=== PATIENT | female | born 2000 | race Caucasian/White ===

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

== ENCOUNTER 2021-01-30 10:11 | Emergency (ER) | payer OTHER, MEDICAID, SELFPAY ==
[2021-01-30 10:14] VITALS: BP 127/67; PULSE 84; RESP 14; TEMP 36.9; O2SAT 100; BMI 22.3
--- NOTE | 2021-01-30 10:17 | DI.US.S_ITS ---
PROCEDURE: US PELVIC COMPLETE INDICATIONS: PELVIC PAIN AND HEAVY BLEEDING TECHNIQUE: Real-time scanning was performed of the pelvic organs, with image documentation. Additional endovaginal scanning was necessary due to incomplete visualization of the adnexal and endometrial structures by transabdominal scanning. COMPARISON: [facility], CT, CT ABDOMEN PELVIS W CON, 10/05/2020, 19:57. [facility], US, US PELVIC COMPLETE, 11/17/2018, 8:21. FINDINGS: Uterus: Uterus is normal in size at 6.9 x 5.2 x 3.2 cm. The endometrium measures 7 mm in combined thickness. A small amount of nonvascular echogenic material seen within the cervical canal that may represent blood products. Ovaries: The right ovary measures 4.2 x 3.7 x 2.7 cm. The left ovary measures 3.1 x 3.0 x 1.6 cm. A right ovarian follicle measures 2.7 x 2.6 x 1.9 cm. Arterial and venous Doppler foot visualized to both ovaries. Other: No pathologic free abdominal or pelvic fluid. A nonspecific 8 mm vascular structure is seen in the right adnexal, most likely a prominent vein. IMPRESSION: Endometrium is within normal limits in size. No discrete uterine fibroid is seen. A small amount of echogenic material in the cervix may represent blood products. Dictated by: Saad Lucia M.D. on 01/30/2021 at 11:09 Approved by: Saad Lucia M.D. on 01/30/2021 at 11:18
[2021-01-30 10:37] LABS: Add Manual Diff / Slide Review NO; Basophils Absolute Auto 0 /uL (0-100); Basophils Percent Auto 0.4 % (0-2); Eosinophils Absolute Auto 100 /uL (0-450); Eosinophils Percent Auto 1.6 % (2-4); Hematocrit 40.7 % (36-46); Hemoglobin 13.5 g/dL (12.0-16.0); Lymphocytes Absolute Auto 2000 /uL (1100-4500); Lymphocytes Percent Auto 36.1 % (25-40); Mean Corpuscular HGB Conc 33.1 % (30-36); Mean Corpuscular Hemoglobin 28.3 PG (26-34); Mean Corpuscular Volume 85.5 fL (80-100); Monocytes Absolute Auto 500 /uL (0-900); Neutrophils Absolute Auto 2800 /uL (1500-7000); Neutrophils Percent Auto 51.9 % (50-75); Platelet Count 313 X10^3/uL (150-400); Red Blood Cell Count 4.76 X10^6/uL (4.0-5.2); Red Cell Distribution Width 12.7 % (11.6-14.8); White Blood Cell Count 5.5 X10^3/uL (4.5-11.0)
--- NOTE | 2021-01-30 11:04 | ED_ITS ---
HPI - Female Genitourinary General Chief complaint: Vaginal Bleeding Stated complaint: Severe Bleeding , Filling Maxi pad in an hour Time Seen by Provider: 01/30/21 10:12 Source: patient Mode of arrival: Ambulatory Limitations: no limitations History of Present Illness HPI Narrative: 20-year-old female daily smoker with history of abdominal pain and dysmenorrhea presents with a chief complaint of heavy vaginal bleeding and lower pelvic pain for the past 2 days. She states she is filling a pad per hour with the passage of clots the size of cotton balls. She just had of. Which lasted about 2 weeks, stop for 2 days and then started again. She is not dizzy nor weak or lightheaded. She denies any chest pain or shortness of breath. She takes no blood thinners. She denies any chance of . She denies dysuria, frequency or urgency. She denies any discharge MD Complaint: vaginal bleeding and pelvic pain Onset (ago): day(s) Location: suprapubic Female Urogenital Radiation: LLQ and LRQ Severity: moderate Quality: Aching and Cramping Duration: constant Relieving factors: none Exacerbating factors: movement Vaginal discharge: blood, dark blood and blood clots Patient : No Associated symptoms: denies other symptoms Related Data Home Medications Medication Instructions Recorded Confirmed albuterol sulfate [Ventolin HFA] 0 puff INH Q4HP PRN 11/04/20 11/27/20 Previous Rx's Medication Instructions Recorded mirtazapine 15 mg tablet 15 mg PO BEDTIME #30 tab 09/30/20 quetiapine 200 mg tablet,extended 200 mg PO BEDTIME #30 tab 09/30/20 release 24 hr sertraline 100 mg tablet 200 mg PO DAILY 30 Days #60 tab 09/30/20 mesalamine 500 mg 1,000 mg PO TID #90 cap 11/27/20 capsule,controlled release fluconazole 150 mg tablet 150 mg PO .COMPLEX #2 tab 12/03/20 nystatin-triamcinolone 100,000 1 applic TOPICAL BID 21 Days #30 g 12/03/20 unit/gram-0.1 % topical ointment ciprofloxacin HCl 500 mg PO BID 5 Days #10 tab 01/30/21 Allergies Allergy/AdvReac Type Severity Reaction Status Date / Time adhesive Allergy Intermediate burn type Verified 01/30/21 10:17 wound from where adhesive was ciprofloxacin [CIPROFLOXACIN] Allergy Intermediate Verified 01/30/21 10:17 cefuroxime [CEFUROXIME] Allergy Mild LAB TOLD Verified 01/30/21 10:17 HER SHE WAS ALLERGIC cephalexin [CEPHALEXIN] Allergy Mild LAB TOLD Verified 01/30/21 10:17 HER SHE WAS ALLERGIC Penicillins [PENICILLINS] Allergy Mild LAB TOLD Verified 01/30/21 10:17 HER SHE WAS ALLERGIC ranitidine [From ZANTAC] Allergy Unknown Verified 01/30/21 10:17 Sulfa (Sulfonamide Allergy Unknown FAMILY HX Verified 01/30/21 10:17 Antibiotics) OF SULFA [SULFA (SULFONAMIDE ALLERGY ANTIBIOTICS)] latex AdvReac Intermediate Rash, Verified 01/30/21 10:17 pain, hives Review of Systems Constitutional Constitutional: Denies chills, Denies fatigue, Denies fever(s), Denies frequent falls, Denies lethargy and Denies weakness Eyes Eyes: Denies change in vision, Denies eye discharge, Denies irritation and Denies loss of vision ENT Ears, Nose, Mouth, and Throat: Denies change in voice, Denies dizziness, Denies neck pain, Denies sore throat and Denies throat swelling Cardiovascular Cardiovascular: Denies chest pain, Denies irregular heart rhythm, Denies lightheadedness, Denies palpitations, Denies dyspnea, Denies dyspnea on exertion and Denies orthopnea Respiratory Respiratory: Denies cough, Denies dyspnea, Denies dyspnea on exertion and Denies wheezing Gastrointestinal Gastrointestinal: Denies abdominal pain, Denies change in bowel habits, Denies diarrhea, Denies nausea and Denies vomiting Genitourinary Genitourinary: Reports menorrhagia Musculoskeletal Musculoskeletal: Denies neck pain and Denies numbness Integumentary/Breasts Skin/Breast: Denies pruritus, Denies erythema, Denies rash and Denies wounds Neurologic Neurologic: Denies behavioral changes, Denies confusion, Denies dizziness, Denies frequent falls, Denies loss of vision, Denies numbness and Denies weakness Psychiatric Psychiatric: Denies anxiety, Denies behavioral changes, Denies confusion, Denies depression, Denies homicidal ideation and Denies suicidal ideation Endocrine Endocrine: Denies fatigue, Denies flushing and Denies palpitations Hematologic/Lymphatic Hematologic/Lymphatic: Denies easy bruising Allergic/Immunologic Allergic/Immunologic: Denies urticaria, Denies throat swelling and Denies wh eezing Patient History Medical History Anemia Anxiety and depression Bronchitis C. difficile colitis Hemoptysis History of seizure Influenza Major depressive disorder, recurrent Monochorionic diamniotic twin gestation Recurrent abdominal pain Schizophrenia Twin gestation in second trimester Surgical History H/O colonoscopy H/O endoscopy History of delivery Status post appendectomy (10/2012) Family History Mother Nephrolithiasis Medullary sponge kidney Benign breast cyst in female Father Nephrolithiasis Grandfather Heart disease Diabetes mellitus Stroke Grandmother Heart disease Diabetes mellitus Stroke Family/Other Cancer alcohol intake frequency: holidays/special occasions only Substance Use Type: does not use Exam Narrative Exam Narrative: GENERAL: [20] year old patient appears stated age. Well- nourished, well-developed patient, in mild distress. HEAD: Atraumatic. Normocephalic. EYES: Pupils equal round and reactive. Extraocular motions intact. No scleral icterus. No injection or drainage. ENT: Nose without bleeding, purulent drainage. Throat without erythema, tonsillar hypertrophy or exudate. Airway patent. NECK: Trachea midline. Non tender CARDIOVASCULAR: Regular rate and rhythm without murmurs, gallops, or rubs. RESPIRATORY: Clear to auscultation. Breath sounds equal bilaterally. No wheezes, rales, or rhonchi. GASTROINTESTINAL: Abdomen soft, non-tender, nondistended. PELVIC: No active bleeding. EXTREMITIES: No edema or joint tenderness. BACK: Nontender without deformity or crepitance. No flank tenderness. NEURO: AOx3. SKIN: No rash or erythema of visible areas Initial Vital Signs Initial Vital Signs: Vital Signs Temperature 98.4 F 01/30/21 10:14 Pulse Rate 84 01/30/21 10:14 Respiratory Rate 14 01/30/21 10:14 Blood Pressure 127/67 01/30/21 10:14 Pulse Oximetry 100 01/30/21 10:14 Course Orders Ordered: ED Orders 01/30/21 10:17 US pelvic complete Stat 01/30/21 10:25 Basic Metabolic Panel Stat Complete Blood Count AUTO DIFF Stat Type and Screen Stat Vital Signs Vital signs: Vital Signs - 8 hr 01/30/21 11:33 Pulse Rate 62 Respiratory Rate 12 Blood Pressure 110/68 Pulse Oximetry 100 MDM - Female Genitourinary Lab Data Result diagrams: 01/30/21 10:25 01/30/21 10:25 Labs: Lab Results 01/30/21 01/30/21 01/30/21 Range/Units 10:25 10:25 10:25 WBC 5.5 (4.5-11.0) X10^3/uL RBC 4.76 (4.0-5.2) X10^6/uL Hgb 13.5 (12.0-16.0) g/dL Hct 40.7 (36-46) % MCV 85.5 (80-100) fL MCH 28.3 (26-34) PG MCHC 33.1 (30-36) % RDW 12.7 (11.6-14.8) % Plt Count 313 (150-400) X10^3/uL Neut % (Auto) 51.9 (50-75) % Lymph % (Auto) 36.1 (25-40) % [place] % (Auto) 10.0 (3-14) % Eos % (Auto) 1.6 L (2-4) % Baso % (Auto) 0.4 (0-2) % Neut # (Auto) 2800 (6542-3363) /uL Lymph # (Auto) 2000 (8672-2806) /uL [place] # (Auto) 500 (0-900) /uL Eos # (Auto) 100 (0-450) /uL Baso # (Auto) 0 (0-100) /uL Sodium 137 (137-145) mmol/L Potassium 3.9 (3.4-5.1) mmol/L Chloride 104 (98-107) mmol/L Carbon Dioxide 24 (22-32) mmol/L BUN 4 L (7-17) mg/dL Creatinine 0.51 L (0.52-1.04) mg/dL Estimated GFR > 60.0 (>60) mL/min BUN/Creatinine Ratio 7.8 (6-22) Glucose 98 (70-100) mg/dL Calcium 9.8 (8.4-10.2) mg/dL Blood Type A Positive Antibody Screen Negative Point of Care Testing Test Results Negative Urine Dip Bedside Urine Glucose 100 mg/dl Bedside Urine Bilirubin ++ 2 Bedside Urine Ketone + 15 Urine Specific [place] 1.025 Bedside Urine Occult Blood +++ Bedside Urine pH 6.5 Bedside Urine Protein +++ 300 Bedside Urine Urobilinogen 2+ 4mg Bedside Urine Nitrite + Positive Bedside Urine Leukocytes +++ 500 Esterase Imaging Data US - SPACE CONTROLLER: Radiologist's Impression: [address] [id number] ReportSigned Patient: Nai Frias LMR#: [id number]: 2000Acct:[id number]/Sex: 20 / FDate of Service: 01/30/21Loc: EDAccession Number: [id number] Procedure: US pelvic complete Ordering Provider: Timo Sykes D.O. PROCEDURE: US PELVIC COMPLETE INDICATIONS: PELVIC PAIN AND HEAVY BLEEDING TECHNIQUE: Real-time scanning was performed of the pelvic organs, with image documentation. Additional endovaginal scanning was necessary due to incomplete visualization of the adnexal and endometrial structures by transabdominal scanning. COMPARISON: [facility], CT, CT ABDOMEN PELVIS W CON, 10/05/2020, 19:57. [facility], US, US PELVIC COMPLETE, 11/17/2018, 8:21. FINDINGS: Uterus: Uterus is normal in size at 6.9 x 5.2 x 3.2 cm. The endometrium measures 7 mm in combined thickness. A small amount of nonvascular echogenic material seen within the cervical canal that may represent blood products. Ovaries: The right ovary measures 4.2 x 3.7 x 2.7 cm. The left ovary measures 3.1 x 3.0 x 1.6 cm. A right ovarian follicle measures 2.7 x 2.6 x 1.9 cm. Arterial and venous Doppler foot visualized to both ovaries. Other: No pathologic free abdominal or pelvic fluid. A nonspecific 8 mm vascular structure is seen in the right adnexal, most likely a prominent vein. IMPRESSION: Endometrium is within normal limits in size. No discrete uterine fibroid is seen. A small amount of echogenic material in the cervix may represent blood products. Dictated by: Saad Lucia M.D. on 01/30/2021 at 11:09 Approved by: Saad Lucia M.D. on 01/30/2021 at 11:18 MDM Narrative Medical decision making narrative: Patient has very minimal bleeding (if any) currently. Her pain is at a minimum. Labs and imaging are very reassuring. No indication at this time for more advanced imaging or emergent assistant professor of art consultation. We will treat her UTI and encourage close follow up. Return precautions given and questions answered to her apparent satisfaction. Discharge Plan Departure Patient Disposition: Home Clinical Impression: Dysfunctional uterine bleeding UTI (urinary tract infection) Qualifiers: Urinary tract infection type: acute cystitis Hematuria presence: without hematuria Qualified Code(s): N30.00 - Acute cystitis without hematuria Instructions: DI for Urinary Tract Infection (UTI), DI for Vaginal Bleeding Activity Restrictions/Additional Instructions: *You have been diagnosed with [vaginal bleeding and pelvic pain] *What to do: *Take medications as directed: Prescription sent to [facility] for an antibiotic *Follow up with your primary care provider in 2-3 days, call for an appointment. Let them know you were seen in the Emergency Department and that we ask that you be seen in follow up *Return to ER if you should have any new, worsening or concerning symptoms, such as [increasing pain, bleeding through greater than a pad per hour, fever, shaking chills] Prescriptions: New ciprofloxacin HCl 500 mg tablet 500 mg PO BID 5 Days Qty: 10 RF: 0 No Action quetiapine 200 mg tablet extended release 24 hr 200 mg PO BEDTIME Qty: 30 RF: 2 mirtazapine 15 mg tablet 15 mg PO BEDTIME Qty: 30 RF: 2 sertraline 100 mg tablet 200 mg PO DAILY 30 Days Qty: 60 RF: 2 fluconazole 150 mg tablet 150 mg PO .COMPLEX Qty: 2 RF: 0 nystatin-triamcinolone 100,000-0.1 unit/gram-% ointment 1 applic topical BID 21 Days Qty: 30 RF: 1 Pentasa 500 mg capsule, extended release 1,000 mg PO TID Qty: 90 RF: 0 albuterol sulfate [Ventolin HFA] 90 MCG/PUFF HFA aerosol inhaler 0 puff INH Q4HP PRN (Reason: Bronchospasm) RF: 0 Referrals: Erlinda Holland DO [Primary Care Provider] -
--- NOTE | 2021-01-30 11:21 | PC.NURSE ---
standby for pelvic exam. Patient tolerated well.
[2021-01-30 11:33] VITALS: BP 110/68; PULSE 62; RESP 12; O2SAT 100
[2021-01-30 11:40] LABS: BUN Creatinine Ratio 7.8 (6-22); Blood Urea Nitrogen 4 mg/dL (7-17); Calcium 9.8 mg/dL (8.4-10.2); Carbon Dioxide 24 mmol/L (22-32); Chloride 104 mmol/L (98-107); Estimated Glomerular Filt Rate > 60.0 mL/min (>60); Glucose 98 mg/dL (70-100); HEMOLYSIS < 15 (0-50); Potassium 3.9 mmol/L (3.4-5.1); Sodium 137 mmol/L (137-145)
== END 2021-01-30 11:34 | disposition home or self-care (01) ==
PROVIDERS: Emergency Provider Emergency Medicine; PCP Family Medicine
DX: N30.00 Acute cystitis without hematuria (principal); N93.8 Other specified abnormal uterine and vaginal bleeding; R10.2 Pelvic and perineal pain
CPT/HCPCS: 36415; 76830; 76856; 80048; 81003; 81025; 85025; 86850; 86900; 86901; 99283; 99284

== ENCOUNTER → 2021-03-04 16:18 | Outpatient (CLI) | payer OTHER, MEDICAID, SELFPAY ==
[2021-03-04] MEDS: COVID-19 VACC #1, MRNA(MOD) 100 MCG/0.5 ML VIAL IM (16:25)
== END ==
PROVIDERS: PCP Family Medicine; Visit Provider Internal Medicine
DX: Z23 Encounter for immunization (principal)
CPT/HCPCS: 0011A; 91301

== ENCOUNTER → 2021-04-02 15:24 | Outpatient (CLI) | payer OTHER, MEDICAID, SELFPAY ==
[2021-04-02] MEDS: COVID-19 VACC #2, MRNA(MOD) 100 MCG/0.5 ML VIAL IM (15:27)
== END ==
PROVIDERS: PCP Family Medicine; Visit Provider Internal Medicine
DX: Z23 Encounter for immunization (principal)
CPT/HCPCS: 0012A; 91301

== ENCOUNTER → 2021-10-03 13:04 | Outpatient (CLI) | payer OTHER, MEDICAID, SELFPAY ==
[2021-10-03 14:08] LABS: COVID19 -Nasal RAPID Negative (Negative)
== END ==
PROVIDERS: PCP Family Medicine; Visit Provider Physician Assistant
DX: Z20.822 Contact with and (suspected) exposure to COVID-19 (principal)
CPT/HCPCS: 87635

== ENCOUNTER 2021-10-19 09:10 | Emergency (ER) | payer OTHER, MEDICAID, SELFPAY ==
[2021-10-19 09:16] VITALS: TEMP 37.1; BMI 21.9
[2021-10-19 09:37] LABS: Add Manual Diff / Slide Review NO; Basophils Absolute Auto 0 /uL (0-100); Basophils Percent Auto 0.4 % (0-2); Eosinophils Absolute Auto 100 /uL (0-450); Eosinophils Percent Auto 1.5 % (2-4); Hematocrit 41.5 % (36-46); Hemoglobin 13.9 g/dL (12.0-16.0); Lymphocytes Absolute Auto 2000 /uL (1100-4500); Lymphocytes Percent Auto 24.1 % (25-40); Mean Corpuscular HGB Conc 33.5 % (30-36); Mean Corpuscular Hemoglobin 28.8 PG (26-34); Monocytes Absolute Auto 400 /uL (0-900); Monocytes Percent Auto 5.1 % (3-14); Neutrophils Absolute Auto 5600 /uL (1500-7000); Neutrophils Percent Auto 68.9 % (50-75); Platelet Count 363 X10^3/uL (150-400); Red Blood Cell Count 4.82 X10^6/uL (4.0-5.2); Red Cell Distribution Width 12.5 % (11.6-14.8); White Blood Cell Count 8.1 X10^3/uL (4.5-11.0)
[2021-10-19 09:58] LABS: Alanine Aminotransferase 15 IU/L (<35); Albumin Globulin Ratio 1.6 (1.0-2.8); Alkaline Phosphatase 73 U/L (38-126); Aspartate Aminotransferase 25 IU/L (14-36); BUN Creatinine Ratio 11.1 (6-22); Bilirubin Total 0.6 mg/dL (0.2-1.3); Blood Urea Nitrogen 6 mg/dL (7-17); Calcium 9.9 mg/dL (8.4-10.2); Carbon Dioxide 26 mmol/L (22-32); Chloride 102 mmol/L (98-107); Estimated Glomerular Filt Rate > 60.0 mL/min (>60); Globulin 3.2 g/dL (1.7-4.1); Glucose 100 mg/dL (70-100); HEMOLYSIS < 15 (0-50); Lipase 59 U/L (23-300); Potassium 3.9 mmol/L (3.4-5.1); Sodium 140 mmol/L (137-145); Total Protein 8.2 g/dL (6.3-8.2)
--- NOTE | 2021-10-19 10:37 | ED.ABDPAIN ---
HPI - Abdominal Pain General Chief Complaint: Abdominal Pain Stated Complaint: chest and right side hurts, throwing up bile Time Seen by Provider: 10/19/21 10:31 Source: patient Mode of arrival: Ambulatory Limitations: no limitations History of Present Illness HPI narrative: This is a 20-year-old female comes emergency department with complaint of right sided abdominal pain in the front as well as back. Patient states it started initially in the front, it has accepted more to the midline epigastric region and around towards her back. She states she has not had fever but has had some chills on and off for the past week. She has had nausea and vomiting. She has been able to tolerate several bottles of water this morning but still feels nauseated. She has not had any diarrhea constipation. She has noted a sense of incomplete emptying and urgency but no dysuria or frequency in the past day. She denies any vaginal bleeding or discharge. Patient has had a prior for delivery of twins and an appendectomy. She is currently transitioning on her mental health medications as her priors were not working as well. She has been working with her psychiatrist for this. She does not have any additional concerns or mental health perspective today. She did have her COVID shot about a week ago and states she felt ill for 1 day but then improved. She states she is allergic to penicillins and anything related to this such as cephalexin or amoxicillin. Related Data Home Medications Medication Instructions Recorded Confirmed albuterol sulfate 90 mcg/actuation 0 puff INH Q4HP PRN 11/04/20 10/03/21 aerosol inhaler (Ventolin HFA) Previous Rx's Medication Instructions Recorded mesalamine 500 mg 1,000 mg PO TID #90 cap 11/27/20 capsule,controlled release (Pentasa) fluconazole 150 mg tablet 150 mg PO .COMPLEX #2 tab 12/03/20 nystatin-triamcinolone 100,000 1 applic TOPICAL BID 21 Days #30 g 12/03/20 unit/gram-0.1 % topical ointment mirtazapine 15 mg tablet 15 mg PO BEDTIME #30 tab 08/08/21 quetiapine 200 mg tablet,extended 200 mg PO BEDTIME #30 tab 08/08/21 release 24 hr sertraline 100 mg tablet 200 mg PO DAILY 30 Days #60 tab 08/08/21 nitrofurantoin 100 mg PO BID #20 cap 10/19/21 monohydrate/macrocrystals 100 mg capsule (Macrobid) ondansetron HCl 4 mg tablet 4 mg PO Q6H PRN #5 tab 10/19/21 (Zofran) Allergies Allergy/AdvReac Type Severity Reaction Status Date / Time adhesive Allergy Intermediate burn type Verified 10/03/21 13:50 wound from where adhesive was ciprofloxacin [CIPROFLOXACIN] Allergy Intermediate Verified 10/03/21 13:50 cefuroxime [CEFUROXIME] Allergy Mild LAB TOLD Verified 10/03/21 13:50 HER SHE WAS ALLERGIC cephalexin [CEPHALEXIN] Allergy Mild LAB TOLD Verified 10/03/21 13:50 HER SHE WAS ALLERGIC Penicillins [PENICILLINS] Allergy Mild LAB TOLD Verified 10/03/21 13:50 HER SHE WAS ALLERGIC ranitidine [From ZANTAC] Allergy Unknown Verified 10/03/21 13:50 Sulfa (Sulfonamide Allergy Unknown FAMILY HX Verified 10/03/21 13:50 Antibiotics) OF SULFA [SULFA (SULFONAMIDE ALLERGY ANTIBIOTICS)] latex AdvReac Intermediate Rash, Verified 10/03/21 13:50 pain, hives Review of Systems Review of Systems ROS Unobtainable: All systems reviewed & are unremarkable except as noted in HPI and below Patient History Medical History Anemia Anxiety and depression Bronchitis C. difficile colitis Hemoptysis History of seizure Influenza Major depressive disorder, recurrent Monochorionic diamniotic twin gestation Nasal bone fracture (~03/2021) Recurrent abdominal pain Schizophrenia Twin gestation in second trimester Surgical History H/O colonoscopy H/O endoscopy History of delivery Status post appendectomy (10/2012) Family History Mother Nephrolithiasis Medullary sponge kidney Benign breast cyst in female Father Nephrolithiasis Grandfather Heart disease Diabetes mellitus Stroke Grandmother Heart disease Diabetes mellitus Stroke Family/Other Cancer Social History household members: spouse Smoking Status: Current every day smoker alcohol intake: current Smoking Status: Current every day smoker alcohol intake frequency: holidays/special occasions only Substance Use Type: does not use Exam Narrative Exam Narrative: GENERAL: Alert and oriented x three, well-nourished female in mild distress HEENT: Head normocephalic, atraumatic, EOMI, pupils reactive, face symmetric, moist mucous membranes NECK: Supple, full range of motion CARDIOVASCULAR: Regular rate and rhythm without murmurs, rubs or gallops. RESPIRATORY: Breath sounds equal bilaterally, no wheezes rales or rhonchi. ABDOMEN: Soft, positive right upper quadrant tenderness.Normoactive bowel sounds all 4 quadrants. No guarding or rebound, rigidity, no mass. : No CVA tenderness EXTREMITIES: Normal range of motion, no clubbing or edema. Neurovascularly intact NEUROLOGICAL: Cranial nerves II through XII grossly intact. Moving all extremities SKIN: Warm, dry, no petechiae, no rashes or lesions. Initial Vital Signs Initial Vital Signs: Vital Signs Temperature 98.8 F 10/19/21 09:16 Course Orders Ordered: ED Orders 10/19/21 10:30 Urine Culture Stat Urine Microscopic Stat 10/19/21 10:51 US abdomen complete Stat Discontinued Medications Sodium Chloride (Normal Saline 0.9%) 1,000 mls @ 1,000 mls/hr IV BOLUS ONE Stop: 10/19/21 11:50 Last Admin: 10/19/21 11:38 Dose: 1,000 mls/hr Documented by: MIRNA Ketorolac Tromethamine (Ketorolac 30 Mg/Ml Vial) 30 mg IV NOW ONE Stop: 10/19/21 10:52 Last Admin: 10/19/21 11:38 Dose: 30 mg Documented by: MIRNA Nitrofurantoin Macrocrystals (Nitrofurantoin Er 100 Mg Capsule) 100 mg PO NOW ONE Stop: 10/19/21 11:55 Last Admin: 10/19/21 12:06 Dose: 100 mg Documented by: RALPH Ondansetron HCl (Ondansetron 4 Mg/2 Ml Inj) 4 mg IV NOW ONE Stop: 10/19/21 10:52 Last Admin: 10/19/21 11:38 Dose: 4 mg Documented by: MIRNA Reevaluation(s) Reevaluation #1: Patient feels much better. Her nausea is resolved. She was able to tolerate orals including her antibiotic here in the department. Ultrasound and labs were reviewed she appears to have a UTI and may be having little bit of a kidney infection but otherwise appears well with no other source of infection found. Time: 12:19 Vital Signs Vital signs: Vital Signs - 8 hr 10/19/21 12:21 10/19/21 12:24 Pulse Rate 70 65 Respiratory Rate 16 18 Blood Pressure 106/62 106/92 H Pulse Oximetry 99 100 MDM - Abdominal Pain Lab Data Result diagrams: 10/19/21 09:25 10/19/21 09:25 Labs: Lab Results 10/19/21 10/19/21 10/19/21 Range/Units 09:25 09:25 10:30 WBC 8.1 (4.5-11.0) X10^3/uL RBC 4.82 (4.0-5.2) X10^6/uL Hgb 13.9 (12.0-16.0) g/dL Hct 41.5 (36-46) % MCV 86.0 (80-100) fL MCH 28.8 (26-34) PG MCHC 33.5 (30-36) % RDW 12.5 (11.6-14.8) % Plt Count 363 (150-400) X10^3/uL Neut % (Auto) 68.9 (50-75) % Lymph % (Auto) 24.1 L (25-40) % [place] % (Auto) 5.1 (3-14) % Eos % (Auto) 1.5 L (2-4) % Baso % (Auto) 0.4 (0-2) % Neut # (Auto) 5600 (4515-0527) /uL Lymph # (Auto) 2000 (7292-8050) /uL [place] # (Auto) 400 (0-900) /uL Eos # (Auto) 100 (0-450) /uL Baso # (Auto) 0 (0-100) /uL Sodium 140 (137-145) mmol/L Potassium 3.9 (3.4-5.1) mmol/L Chloride 102 (98-107) mmol/L Carbon Dioxide 26 (22-32) mmol/L BUN 6 L (7-17) mg/dL Creatinine 0.54 (0.52-1.04) mg/dL Estimated GFR > 60.0 (>60) mL/min BUN/Creatinine Ratio 11.1 (6-22) Glucose 100 (70-100) mg/dL Calcium 9.9 (8.4-10.2) mg/dL Total Bilirubin 0.6 (0.2-1.3) mg/dL AST 25 (14-36) IU/L ALT 15 (<35) IU/L Alkaline Phosphatase 73 (38-126) U/L Total Protein 8.2 (6.3-8.2) g/dL Albumin 5.0 (3.5-5.0) g/dL Globulin 3.2 (1.7-4.1) g/dL Albumin/Globulin Ratio 1.6 (1.0-2.8) Lipase 59 (23-300) U/L Urine RBC None seen (0-5/HPF) Urine WBC 5-10/hpf H (0-5/HPF) Ur Squamous Epith Cells 1-5 /hpf (0-5/HPF) Urine Bacteria Many (>30) H (None) Ur Culture Indicated? Specimen cultured Point of care testing: Point of Care Testing Test Results Negative Urine Dip Bedside Urine Glucose Negative Bedside Urine Bilirubin - Negative Bedside Urine Ketone - Negative Urine Specific [place] 1.015 Bedside Urine Occult Blood - Negative Bedside Urine pH 8.0 Bedside Urine Protein +/- 15 Bedside Urine Urobilinogen 0.2 Bedside Urine Nitrite + Positive Bedside Urine Leukocytes +/- 15 Esterase Imaging Data US - abdomen: Radiologist's Impression: Launch?[place] [address] Ultrasound Report Signed Patient: Nai Frias MR#: [id number] : 2000 Acct:[id number] Age/Sex: 20 / F Date of Service: 10/19/21 Loc: ED Accession Number: [id number] ?? Procedure: US abdomen complete Ordering Provider: Maricarmen Muñoz D.O. PROCEDURE:? US ABDOMEN COMPLETE ? INDICATIONS:? RUQ/RIGHT FLANK PAIN ? TECHNIQUE:? Real-time scanning was performed of the abdominal and retroperitoneal organs, with image documentation.? ? COMPARISON:[facility], ABDOMEN COMPLETE, 11/27/2015, 16:42. ? FINDINGS:? ? Liver:? Liver is normal in size and homogeneous in echotexture.? ? Gallbladder:? No findings of gallstones or sludge are seen.? The gallbladder wall is not thickened, measuring 3 mm or less.? No specific pericholecystic fluid is seen.? The sonographic Torres sign is negative.? ? Biliary ducts:? Intrahepatic bile ducts are non-dilated.? Extrahepatic bile duct caliber measures 2 mm.? Normal is 6-7 mm or less in diameter, or 10 mm or less post-cholecystectomy.? ? Pancreas:? Visualized portions of the pancreas are sonographically normal.? ? Spleen:? Spleen is normal in size and homogeneous in echotexture.? ? Kidneys:? Kidneys are normal in size and echotexture.? Right kidney measures 10.5 cm long; left kidney measures 10 cm long.? No hydronephrosis or nephrolithiasis.? No solid masses.? ? Aorta:? Visualized aorta is normal in caliber at less than 3 cm.? ? Iliacs:? Proximal common iliac arteries are normal in caliber at less than 2.5 cm.? ? IVC:? Intrahepatic inferior vena cava is patent.? ? Miscellaneous:? No free abdominal fluid.? ? ? IMPRESSION:? The gallbladder demonstrates a normal sonographic appearance. No biliary dilatation is seen. ? Negative for hydronephrosis. ? ? ? Dictated by: Juan Peterson M.D. on 10/19/2021 at 11:05 ? ? Approved by: Juan Peterson M.D. on 10/19/2021 at 11:06?? [facility] Narrative Medical decision making narrative: This is a 20-year-old female who comes in with complaint of nausea and vomiting for past 12-24 hours right-sided abdominal and flank pain. Patient has noted some urinary symptoms as well. Urine is suspicion for infection. She otherwise has fairly normal labs and ultrasound that is not concerning for obstructive stone or gallbladder changes. Patient feels much better after fluids Zofran and Toradol and is tolerating orals. Discharge Plan Departure Patient Disposition: Home Clinical Impression: UTI (urinary tract infection) Instructions: DI for Urinary Tract Infection (UTI) Activity Restrictions/Additional Instructions: Follow-up in the next week for recheck if your symptoms have not resolved. Take antibiotics until completely gone. You may take Zofran 1 tablet every 6 hours as needed for nausea. [facility] [place]. Please return for fevers, new or worsening abdominal, back or flank pain, persistent vomiting, lightheadedness or passing out or other new or concerning symptoms. Prescriptions: New nitrofurantoin monohyd/m-cryst [Macrobid] 100 mg capsule 100 mg PO BID Qty: 20 0RF Rx Instructions: must administer with a meal/food ondansetron HCl [Zofran] 4 mg tablet 4 mg PO Q6H PRN (Reason: nausea and vomiting) Qty: 5 0RF No Action mirtazapine 15 mg tablet 15 mg PO BEDTIME Qty: 30 2RF quetiapine 200 mg tablet extended release 24 hr 200 mg PO BEDTIME Qty: 30 2RF sertraline 100 mg tablet 200 mg PO DAILY 30 Days Qty: 60 2RF fluconazole 150 mg tablet 150 mg PO .COMPLEX Qty: 2 0RF Rx Instructions: Take 1 tablet by mouth now. Repeat second dose in 5 days. nystatin-triamcinolone 100,000-0.1 unit/gram-% ointment 1 applic topical BID 21 Days Qty: 30 1RF Pentasa 500 mg capsule, extended release 1,000 mg PO TID Qty: 90 0RF albuterol sulfate [Ventolin HFA] 90 MCG/PUFF HFA aerosol inhaler 0 puff INH Q4HP PRN (Reason: Bronchospasm) 0RF Referrals: Erlinda Holland DO [Primary Care Provider] - Stand Alone Forms: Work Release Note
[2021-10-19 10:50] LABS: Bacteria Urine Many (>30); Culture Indicated Urine Specimen Cultured; RBC Urine None Seen (0-5/HPF); Squamous Epithelial Cell Urine 1-5 /HPF (0-5/HPF); WBC Urine 5-10/HPF (0-5/HPF)
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
[2021-10-19] MEDS: ONDANSETRON 4 MG/2 ML INJ IV (11:38)
[2021-10-19] MEDS: KETOROLAC 30 MG/ML VIAL IV (11:38)
[2021-10-19] MEDS: SODIUM CHLORIDE 0.9% 1,000 ML 1000 ML IV (11:38)
[2021-10-19] MEDS: NITROFURANTOIN ER 100 MG CAPSULE PO (12:06)
[2021-10-19 12:21] VITALS: BP 106/62; PULSE 70; RESP 16; O2SAT 99
[2021-10-19 12:24] VITALS: BP 106/92; PULSE 65; RESP 18; O2SAT 100
--- NOTE | 2021-10-30 13:40 | PC.NURSE ---
late entry - per RN IV fluids were DC'd at 1230 at time IV was discontinued
--- NOTE | 2021-10-31 07:26 | PC.NURSE ---
late entry, normal saline stop time 10/19/21 at 1230 pm.
== END 2021-10-19 12:33 | disposition home or self-care (01) ==
PROVIDERS: Emergency Provider Emergency Medicine; PCP Family Medicine
DX: N39.0 Urinary tract infection, site not specified (principal); R11.2 Nausea with vomiting, unspecified
CPT/HCPCS: 76700; 80053; 81003; 81015; 81025; 83690; 85025; 87077; 87086; 87186; 96361; 96374; 96375; 99284; J1885; J2405

== ENCOUNTER 2021-10-27 17:02 | Emergency (ER) | payer OTHER, MEDICAID, SELFPAY ==
[2021-10-27 17:15] VITALS: BP 131/82; PULSE 107; RESP 18; TEMP 37; O2SAT 97; BMI 18.8
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
--- NOTE | 2021-10-27 20:10 | PC.NURSE ---
Received call from pt's mother who was very upset that pt had not been seen yet. Informed that pt was brought directly back, that CT had been completed and that LABEL REMOVER had spent over an hour with pt. She continued to be upset. I reviewed triage / acuity with her. She hung up on me.
[2021-10-27] MEDS: SODIUM CHLORIDE 0.9% 1,000 ML 1000 ML IV (20:58)
[2021-10-27] MEDS: CYCLOBENZAPRINE 10 MG PREPACK 1 BOTTLE MISC (20:58)
[2021-10-27] MEDS: KETOROLAC 30 MG/ML VIAL 15 MG IV (20:58)
[2021-10-27 21:00] LABS: Add Manual Diff / Slide Review NO; Basophils Absolute Auto 0 /uL (0-100); Basophils Percent Auto 0.3 % (0-2); Eosinophils Absolute Auto 200 /uL (0-450); Eosinophils Percent Auto 2.2 % (2-4); Hematocrit 40.4 % (36-46); Hemoglobin 13.7 g/dL (12.0-16.0); Lymphocytes Absolute Auto 3500 /uL (1100-4500); Lymphocytes Percent Auto 37.5 % (25-40); Mean Corpuscular HGB Conc 33.8 % (30-36); Mean Corpuscular Hemoglobin 28.7 PG (26-34); Mean Corpuscular Volume 84.7 fL (80-100); Monocytes Absolute Auto 900 /uL (0-900); Monocytes Percent Auto 9.2 % (3-14); Neutrophils Absolute Auto 4800 /uL (1500-7000); Neutrophils Percent Auto 50.8 % (50-75); Platelet Count 353 X10^3/uL (150-400); Red Blood Cell Count 4.77 X10^6/uL (4.0-5.2); Red Cell Distribution Width 12.3 % (11.6-14.8); White Blood Cell Count 9.4 X10^3/uL (4.5-11.0)
[2021-10-27 21:17] LABS: Alanine Aminotransferase 17 IU/L (<35); Albumin 5.1 g/dL (3.5-5.0); Albumin Globulin Ratio 1.4 (1.0-2.8); Alkaline Phosphatase 78 U/L (38-126); Aspartate Aminotransferase 36 IU/L (14-36); BUN Creatinine Ratio 16.1 (6-22); Bilirubin Total 0.7 mg/dL (0.2-1.3); Blood Urea Nitrogen 10 mg/dL (7-17); Calcium 10.1 mg/dL (8.4-10.2); Carbon Dioxide 24 mmol/L (22-32); Chloride 105 mmol/L (98-107); Estimated Glomerular Filt Rate > 60.0 mL/min (>60); Globulin 3.6 g/dL (1.7-4.1); Glucose 84 mg/dL (70-100); HEMOLYSIS 16 (0-50); Potassium 3.4 mmol/L (3.4-5.1); Sodium 143 mmol/L (137-145); Total Protein 8.7 g/dL (6.3-8.2)
[2021-10-27 22:18] VITALS: BP 115/73; PULSE 78; RESP 18; O2SAT 100
== END 2021-10-27 22:19 | disposition home or self-care (01) ==
PROVIDERS: Emergency Provider Emergency Medicine; PCP Family Medicine
DX: R55 Syncope and collapse (principal); S00.83XA Contusion of other part of head, initial encounter; M54.2 Cervicalgia; Y04.8XXA Assault by other bodily force, initial encounter
CPT/HCPCS: 36415; 70450; 72125; 80053; 85025; 93005; 93010; 96361; 96374; 99284; J1885

== ENCOUNTER 2021-11-07 10:27 | Emergency (ER) | payer OTHER, MEDICAID, SELFPAY ==
[2021-11-07] VITALS (24 sets, daily range): BP systolic 101–121; BP diastolic 57–82; PULSE 90–127; RESP 17–41; TEMP 36.4; O2SAT 96–100; BMI 18.5
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
--- NOTE | 2021-11-07 10:52 | DI.RAD.S_ITS ---
PROCEDURE: XR CHEST 1V INDICATIONS: SOB TECHNIQUE: One view of the chest was acquired. COMPARISON: [facility], , XR CHEST 1V, 10/04/2020, 17:57. FINDINGS: Surgical changes and devices: None. Lungs and pleura: Lungs are clear. No pleural effusions or pneumothorax. Mediastinum: Mediastinal contours appear normal. Heart size is normal. Bones and chest wall: No suspicious bony lesions. Overlying soft tissues appear unremarkable. IMPRESSION: No acute cardiopulmonary findings Approved by: Nikko Rivera M.D. on 11/07/2021 at 10:31
[2021-11-07 11:01] LABS: Add Manual Diff / Slide Review NO; Basophils Absolute Auto 0 /uL (0-100); Basophils Percent Auto 0.3 % (0-2); Eosinophils Absolute Auto 100 /uL (0-450); Eosinophils Percent Auto 0.7 % (2-4); Hematocrit 40.6 % (36-46); Lymphocytes Absolute Auto 2200 /uL (1100-4500); Lymphocytes Percent Auto 24.5 % (25-40); Mean Corpuscular HGB Conc 34.4 % (30-36); Mean Corpuscular Volume 84.2 fL (80-100); Monocytes Absolute Auto 700 /uL (0-900); Monocytes Percent Auto 7.9 % (3-14); Neutrophils Absolute Auto 6000 /uL (1500-7000); Neutrophils Percent Auto 66.6 % (50-75); Platelet Count 353 X10^3/uL (150-400); Red Blood Cell Count 4.82 X10^6/uL (4.0-5.2); Red Cell Distribution Width 12.1 % (11.6-14.8)
[2021-11-07] MEDS: SODIUM CHLORIDE 0.9% 1,000 ML 1000 ML IV ×2 (11:06→12:53)
[2021-11-07 11:07] LABS: Lactate (Lactic Acid) 1.8 mmol/L (0.7-2.1)
[2021-11-07 11:08] LABS: Alanine Aminotransferase 15 IU/L (<35); Albumin Globulin Ratio 1.6 (1.0-2.8); Alkaline Phosphatase 82 U/L (38-126); Aspartate Aminotransferase 24 IU/L (14-36); BUN Creatinine Ratio 21.7 (6-22); Bilirubin Total 0.4 mg/dL (0.2-1.3); Blood Urea Nitrogen 13 mg/dL (7-17); Carbon Dioxide 25 mmol/L (22-32); Chloride 102 mmol/L (98-107); Creatine Kinase 94 U/L (30-135); Estimated Glomerular Filt Rate > 60.0 mL/min (>60); Globulin 3.2 g/dL (1.7-4.1); Glucose 110 mg/dL (70-100); HEMOLYSIS < 15 (0-50); Magnesium 2.1 mg/dL (1.6-2.3); Potassium 3.9 mmol/L (3.4-5.1); Sodium 139 mmol/L (137-145); Total Protein 8.2 g/dL (6.3-8.2)
[2021-11-07 11:19] LABS: Troponin I < 0.012 ng/mL (0.01-0.034)
[2021-11-07 11:26] LABS: D Dimer < 200 ng/mL (<230)
[2021-11-07 11:45] LABS: COVID19 -Nasal RAPID Negative (Negative)
--- NOTE | 2021-11-07 12:15 | PC.NURSE ---
Pt reports still feeling lightheaded, worse with position, Dr. Sykes notified.
--- NOTE | 2021-11-07 13:05 | DI.CT.S_ITS ---
After the administration of intravenous contrast, 1 mm thick sections acquired from the aortic arch through the [place] of [place]andez. Post-contrast 4.5 mm thick sections then re-acquired from the foramen magnum to the vertex. 3-dimensional [id number]-[id number] (MIP) and/or volume rendering reformats were acquired of the central intracranial vasculature and neck separately. COMPARISON: None. FINDINGS: Image quality: Excellent. BRAIN: CSF spaces: Ventricles are normal in size and shape. Basal cisterns are patent. No extra-axial fluid collections. Brain: No midline shift. No intracranial bleeds or masses. Avila-white matter interface appears intact. Skull and face: Calvarium and facial bones appear intact, without suspicious lesions. Orbits appear normal. Sinuses: Sinuses and mastoids are clear. HEAD CT ANGIOGRAPHY: Anterior circulation: Intracranial internal carotid arteries are normal in size and flow. The flow within the paired anterior cerebral arteries is normal and symmetric. The flow within the middle cerebral arteries is normal and symmetric. The anterior communicating artery is seen. No aneurysms are seen. Posterior circulation: Visualized portions of the vertebral arteries demonstrate normal caliber, and join to form a normal appearing basilar artery. Flow within the posterior cerebral arteries is normal and symmetric. No aneurysms are seen. NECK CT ANGIOGRAPHY: Carotid system: The great vessels demonstrate a conventional anatomy as they arise from the aortic arch. The origins of the common carotid arteries appear patent. The common carotid arteries demonstrate normal caliber and courses. The bifurcation regions are both widely patent. The internal carotid arteries demonstrate normal calibers and courses. Posterior circulation: The origins of the vertebral arteries both appear widely patent. The more superior extracranial portions of both vertebral arteries also demonstrate normal courses and calibers. They join to form a normal appearing basilar artery. Soft tissues: Visualized neck soft tissues demonstrate no suspicious abnormalities. Bones: No suspicious bony lesions. Visualized cervical spine appears normally aligned. IMPRESSION: Unremarkable CT angiogram of the head and neck. No findings of acute vascular injury. Any quantitative measurements of stenosis were performed using NASCET criteria. Dictated by: Robbie Pritchett M.D. on 11/07/2021 at 13:54 Approved by: Robbie Pritchett M.D. on 11/07/2021 at 13:57
--- NOTE | 2021-11-07 14:43 | PC.NURSE ---
Pt assisted to bathroom, sat up slowly and reports dizziness. Wheelchair utilized to the bathroom and pt steadily transferred self.
[2021-11-07] MEDS: ONDANSETRON 4 MG/2 ML INJ IV (14:58)
--- NOTE | 2021-11-07 15:42 | PC.NURSE ---
During standing orthostatics, pt swaying and holding onto bed, increased work of breathing. Pt attempted to walk and after two steps stated I need to go back, I can't see, reports seeing black spots. Assisted back to stretcher and pt reports body recovered but eyes causing her to feel dizzy.
[2021-11-07] MEDS: LACTATED RINGERS 1,000 ML 1000 ML IV (15:50)
--- NOTE | 2021-11-07 16:49 | PC.NURSE ---
Pt called regarding IV, states it is burning. Site intact with no indications of infiltration, blood return with flush. IV removed per request and new site started to continue fluids.
--- NOTE | 2021-11-07 17:56 | PC.NURSE ---
c/o IV right true 'burning'. Nothing infusing. Flushes well. No redness at site or around adhesives. Warm blanket around it for comfort.
--- NOTE | 2021-11-07 18:00 | PC.NURSE ---
Pt appears angry and is not making good eye contact. One word answers at times. Encouraged conversation but pt declines. Will refer to ED ESCALATOR CONSTRUCTOR whom she has seen in the past by phone early next week.
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
== END 2021-11-07 18:18 | disposition home or self-care (01) ==
PROVIDERS: Emergency Provider Emergency Medicine; PCP Family Medicine
DX: F07.81 Postconcussional syndrome (principal); F17.200 Nicotine dependence, unspecified, uncomplicated; Z20.822 Contact with and (suspected) exposure to COVID-19
CPT/HCPCS: 36415; 70496; 70498; 71045; 80053; 81003; 81025; 82550; 83605; 83735; 84484; 85025; 85379; 87040; 87635; 93005; 93010; 96361; 96374; 99284; 99285; C9803; J2405; Q9967

== ENCOUNTER → 2022-03-04 14:38 | Outpatient (CLI) | payer OTHER, MEDICAID, SELFPAY ==
--- NOTE | 2022-03-04 14:39 | DI.RAD.S_ITS ---
PROCEDURE: XR LUMBAR SPINE 2-3V INDICATIONS: Reticular low back pain, left side TECHNIQUE: 3 views of the lumbar spine were acquired. COMPARISON: CT, CT ABDOMEN PELVIS W CON, 10/05/2020, 19:57. FINDINGS: Bones: 5 [id number] vertebrae are present. Alignment is within normal limits. No vertebral body compression fractures. No suspicious bony lesions. Soft tissues: Overlying bowel gas pattern is normal. No suspicious soft tissue calcifications. IMPRESSION: No significant osseous abnormality. Dictated by: Diogenes Sotomayor M.D. on 03/04/2022 at 17:33 Approved by: Diogenes Sotomayor M.D. on 03/04/2022 at 17:35
== END ==
PROVIDERS: PCP Family Medicine; Referring Provider Family Medicine; Visit Provider Family Medicine
DX: M54.50 Low back pain, unspecified (principal)
CPT/HCPCS: 72100

== ENCOUNTER 2022-05-04 10:11 | Emergency (ER) | payer OTHER, MEDICAID, SELFPAY ==
[2022-05-04] VITALS (9 sets, daily range): BP systolic 116–132; BP diastolic 69–74; PULSE 84–116; RESP 16–50; TEMP 37.2; O2SAT 97–100; BMI 21.2
[2022-05-04 11:48] LABS: COVID19 -Nasal RAPID Negative (Negative)
[2022-05-04 13:31] LABS: Add Manual Diff / Slide Review NO; Alanine Aminotransferase 16 IU/L (<35); Albumin 5.3 g/dL (3.5-5.0); Albumin Globulin Ratio 1.4 (1.0-2.8); Alkaline Phosphatase 91 U/L (38-126); Aspartate Aminotransferase 32 IU/L (14-36); BUN Creatinine Ratio 13.1 (6-22); Basophils Absolute Auto 0 /uL (0-100); Basophils Percent Auto 0.4 % (0-2); Bilirubin Total 0.5 mg/dL (0.2-1.3); Blood Urea Nitrogen 8 mg/dL (7-17); Calcium 9.4 mg/dL (8.4-10.2); Carbon Dioxide 24 mmol/L (22-32); Chloride 104 mmol/L (98-107); Eosinophils Absolute Auto 100 /uL (0-450); Eosinophils Percent Auto 1.1 % (2-4); Estimated Glomerular Filt Rate > 60 mL/min (>60); Globulin 3.7 g/dL (1.7-4.1); Glucose 83 mg/dL (70-100); HEMOLYSIS < 15 (0-50); Hematocrit 39.4 % (36-46); Hemoglobin 13.4 g/dL (12.0-16.0); Lymphocytes Absolute Auto 1600 /uL (1100-4500); Lymphocytes Percent Auto 27.9 % (25-40); Mean Corpuscular HGB Conc 34.1 % (30-36); Mean Corpuscular Hemoglobin 29.4 PG (26-34); Mean Corpuscular Volume 86.1 fL (80-100); Monocytes Absolute Auto 700 /uL (0-900); Monocytes Percent Auto 11.9 % (3-14); Neutrophils Absolute Auto 3400 /uL (1500-7000); Neutrophils Percent Auto 58.7 % (50-75); Platelet Count 276 X10^3/uL (150-400); Potassium 3.7 mmol/L (3.4-5.1); Red Blood Cell Count 4.57 X10^6/uL (4.0-5.2); Red Cell Distribution Width 12.7 % (11.6-14.8); Sodium 140 mmol/L (137-145); White Blood Cell Count 5.7 X10^3/uL (4.5-11.0)
[2022-05-04] MEDS: SODIUM CHLORIDE 0.9% 1,000 ML 1000 ML IV (13:52)
--- NOTE | 2022-05-04 14:03 | DI.RAD.S_ITS ---
PROCEDURE: XR CHEST 1V INDICATIONS: Dyspnea, wheezing TECHNIQUE: One view of the chest was acquired. COMPARISON: [facility], CR, XR CHEST 1V, 11/07/2021, 10:53. FINDINGS: Surgical changes and devices: None. Lungs and pleura: Lungs are clear. No pleural effusions or pneumothorax. Mediastinum: Mediastinal contours appear normal. Heart size is exaggerated by AP portable technique. Bones and chest wall: No suspicious bony lesions. Overlying soft tissues appear unremarkable. IMPRESSION: No acute cardiopulmonary abnormality. Dictated by: Saad Lucia M.D. on 05/04/2022 at 14:25 Approved by: Saad Lucia M.D. on 05/04/2022 at 14:25
--- NOTE | 2022-05-04 14:23 | ED_ITS ---
HPI - SOB/Dyspnea <Luis Miguel Hoover PA-C - Last Filed: 05/04/22 20:18> General Chief Complaint: Shortness of Breath/Dyspnea Stated Complaint: Trouble breathing- left side body pain Time Seen by Provider: 05/04/22 13:17 Source: patient Mode of arrival: Wheelchair Limitations: no limitations History of Present Illness HPI Narrative: Patient is a 21-year-old female who presents to the emergency department with multiple complaints. She explains that her children been sick at home with upper respiratory like symptoms, noting that she herself began to experience a sore throat, fever, and rhinorrhea over extremity for 5 days ago. She explains that she has been experiencing symptoms of chills, shaking, left-sided numbness, fever with a T-max report of 103? F, night sweats, nasal congestion, nausea, and decreased appetite. She explains that she has also experienced some difficulty breathing but states that she has not been experiencing a significant cough. She denies any chest pain, and constipation, abdominal pain, dysuria, hematuria, rash, earache, changes in vision, syncope, speech difficulty, word-finding difficulty, or any other concerning symptoms. No further concerns were voiced at this time. Related Data Home Medications Medication Instructions Recorded Confirmed albuterol sulfate 90 mcg/actuation 0 puff INH Q4HP PRN Bronchospasm 11/04/20 05/07/22 aerosol inhaler (Ventolin HFA) Previous Rx's Medication Instructions Recorded ondansetron HCl 4 mg tablet 4 mg PO Q6H PRN nausea and 10/19/21 (Zofran) vomiting #5 tabs methocarbamol 500 mg tablet See Rx Instructions PO Q6-8H PRN 02/26/22 muscle spasm #30 tabs hydrocodone 5 mg-acetaminophen 325 1 tab PO BID PRN pain #20 tabs 03/30/22 mg tablet mirtazapine 15 mg tablet 15 mg PO BEDTIME Depression #30 04/09/22 tabs prazosin 1 mg capsule 2 mg PO BEDTIME Nightmares #60 caps 04/09/22 quetiapine 300 mg tablet,extended 300 mg PO BEDTIME Dissociation #30 04/09/22 release 24 hr tabs sertraline 100 mg tablet 200 mg PO DAILY Anxiety and 04/09/22 depression 30 days #60 tabs Allergies Allergy/AdvReac Type Severity Reaction Status Date / Time adhesive Allergy Intermediate burn type Verified 05/07/22 11:53 wound from where adhesive was ciprofloxacin [CIPROFLOXACIN] Allergy Intermediate Verified 05/07/22 11:53 cefuroxime [CEFUROXIME] Allergy Mild LAB TOLD Verified 05/07/22 11:53 HER SHE WAS ALLERGIC cephalexin [CEPHALEXIN] Allergy Mild LAB TOLD Verified 05/07/22 11:53 HER SHE WAS ALLERGIC Penicillins [PENICILLINS] Allergy Mild LAB TOLD Verified 05/07/22 11:53 HER SHE WAS ALLERGIC ranitidine [From ZANTAC] Allergy Unknown Verified 05/07/22 11:53 Sulfa (Sulfonamide Allergy Unknown FAMILY HX Verified 05/07/22 11:53 Antibiotics) OF SULFA [SULFA (SULFONAMIDE ALLERGY ANTIBIOTICS)] latex AdvReac Intermediate Rash, Verified 05/07/22 11:53 pain, hives Review of Systems <Luis Miguel Hoover PA-C - Last Filed: 05/04/22 20:18> Constitutional Constitutional: Reports chills, Denies fatigue, Reports fever(s), Denies frequent falls, Denies lethargy, Reports night sweats, Reports poor appetite and Denies weakness ENT Ears, Nose, Mouth, and Throat: Denies change in voice, Denies dizziness, Reports nasal congestion, Denies neck pain, Denies throat swelling and Denies tongue swelling Cardiovascular Cardiovascular: Denies chest pain, Denies irregular heart rhythm, Denies lightheadedness, Denies palpitations, Denies dyspnea, Denies dyspnea on exertion and Denies orthopnea Respiratory Respiratory: Denies dyspnea and Denies dyspnea on exertion Gastrointestinal Gastrointestinal: Denies abdominal pain, Denies change in bowel habits, Denies diarrhea, Reports nausea and Reports vomiting Genitourinary Genitourinary: Denies hematuria, Denies flank pain, Denies urinary incontinence and Denies urinary urgency Musculoskeletal Musculoskeletal: Denies neck pain Integumentary/Breasts Skin/Breast: Denies pruritus, Denies erythema, Denies rash and Denies wounds Neurologic Neurologic: Denies dizziness, Denies frequent falls and Denies weakness Endocrine Endocrine: Denies fatigue and Denies palpitations Allergic/Immunologic Allergic/Immunologic: Denies throat swelling and Denies tongue swelling Patient History <Luis Miguel Hoover PA-C - Last Filed: 05/04/22 20:18> Medical History Anemia Anxiety and depression Bronchitis C. difficile colitis Hemoptysis History of seizure Influenza Major depressive disorder, recurrent Monochorionic diamniotic twin gestation Nasal bone fracture (~03/2021) Recurrent abdominal pain Schizophrenia Twin gestation in second trimester Surgical History H/O colonoscopy H/O endoscopy History of delivery Status post appendectomy (10/2012) Family History Mother Nephrolithiasis Medullary sponge kidney Benign breast cyst in female Father Nephrolithiasis Grandfather Heart disease Diabetes mellitus Stroke Grandmother Heart disease Diabetes mellitus Stroke Family/Other Cancer Social History household members: spouse Smoking Status: Current every day smoker alcohol intake: current Smoking Status: Current every day smoker tobacco type: cigarettes alcohol intake frequency: holidays/special occasions only Substance Use Type: does not use Exam <Luis Miguel Hoover PA-C - Last Filed: 05/04/22 20:18> Narrative Exam Narrative: GENERAL: 21 year old patient appears stated age. Well-developed patient, in no acute distress. HEAD: Atraumatic. Normocephalic. EYES: Pupils equal round and reactive. Extraocular motions intact. No scleral icterus. No injection or drainage. ENT: Nose without bleeding, purulent drainage. Throat without erythema, tonsillar hypertrophy or exudate. Airway patent. NECK: Trachea midline. Non tender CARDIOVASCULAR: Tachycardic but regular rhythm without murmurs, gallops, or rubs. RESPIRATORY: Clear to auscultation. Breath sounds equal bilaterally. No wheezes, rales, or rhonchi. GASTROINTESTINAL: Abdomen soft, non-tender, nondistended. EXTREMITIES: No edema or joint tenderness. Decreased sensation light touch appreciated throughout the left upper and lower extremities with decreased range of motion. Patient is able to move the left hand and slightly flexed at the left hip. Left foot is held in slight internal rotation. DP pulses palpated bilaterally and are even. No gross deformity appreciated throughout the bilateral upper and lower extremities. BACK: Nontender without deformity or crepitance. No flank tenderness. NEURO: AOx3. Answering questions appropriately, no facial droop appreciated. SKIN: No rash or erythema of visible areas Initial Vital Signs Initial Vital Signs: Vital Signs Temperature 98.9 F 05/04/22 10:54 Pulse Rate 116 H 05/04/22 10:54 Respiratory Rate 18 05/04/22 10:54 Blood Pressure 119/69 05/04/22 10:54 Pulse Oximetry 99 05/04/22 10:54 Oxygen Delivery Method 05/04/22 10:54 <Maricarmen Muñoz DO - Last Filed: 05/10/22 12:48> Initial Vital Signs Initial Vital Signs: Vital Signs Temperature 98.9 F 05/04/22 10:54 Pulse Rate 116 H 05/04/22 10:54 Respiratory Rate 18 05/04/22 10:54 Blood Pressure 119/69 05/04/22 10:54 Pulse Oximetry 99 05/04/22 10:54 Oxygen Delivery Method 05/04/22 10:54 Course <Luis Miguel Hoover PA-C - Last Filed: 05/04/22 20:18> Course Course Narrative: Stroke workup. Lab studies within normal limits. CT of the head, CT angiogram of the head neck, left lower extremity arterial duplex ultrasound all within normal limits no signs of acute abnormality. MR of the brain ordered, however patient declines and says that she would like to follow up with primary care for further management. Orders Ordered: Discontinued Medications Sodium Chloride (Normal Saline 0.9%) 1,000 mls @ 1,000 mls/hr IV BOLUS ONE Stop: 05/04/22 14:30 Last Infusion: 05/04/22 15:11 Dose: 0 mls/hr Documented By: Admin: 05/04/22 13:52 Dose: 1,000 mls/hr Documented By: CTS Sodium Chloride (Normal Saline 0.9%) 1,000 mls @ 150 mls/hr IV CONT YONNY Last Admin: 05/04/22 18:51 Dose: Not Given Documented By: CTS Vital Signs Vital signs: Vital Signs - 8 hr 05/04/22 13:12 05/04/22 13:12 05/04/22 13:30 Pulse Rate 84 95 H Respiratory Rate Blood Pressure 132/69 Pulse Oximetry 97 100 Oxygen Delivery Method 05/04/22 14:00 05/04/22 14:30 05/04/22 15:00 Pulse Rate 95 H 107 H 103 H Respiratory Rate 26 H 29 H 50 H Blood Pressure Pulse Oximetry 100 100 100 Oxygen Delivery Method 05/04/22 15:30 05/04/22 16:00 05/04/22 19:24 Pulse Rate 95 H 109 H 95 H Respiratory Rate 32 H 32 H 16 Blood Pressure 116/74 Pulse Oximetry 99 99 Oxygen Delivery Method Room Air <Maricarmen Muñoz DO - Last Filed: 05/10/22 12:48> Orders Ordered: Discontinued Medications Sodium Chloride (Normal Saline 0.9%) 1,000 mls @ 1,000 mls/hr IV BOLUS ONE Stop: 05/04/22 14:30 Last Infusion: 05/04/22 15:11 Dose: 0 mls/hr Documented By: Admin: 05/04/22 13:52 Dose: 1,000 mls/hr Documented By: PIERCE Sodium Chloride (Normal Saline 0.9%) 1,000 mls @ 150 mls/hr IV CONT YONNY Last Admin: 05/04/22 18:51 Dose: Not Given Documented By: CTS Vital Signs Vital signs: Vital Signs - 8 hr 05/04/22 13:12 05/04/22 13:12 05/04/22 13:30 Pulse Rate 84 95 H Respiratory Rate Blood Pressure 132/69 Pulse Oximetry 97 100 Oxygen Delivery Method 05/04/22 14:00 05/04/22 14:30 05/04/22 15:00 Pulse Rate 95 H 107 H 103 H Respiratory Rate 26 H 29 H 50 H Blood Pressure Pulse Oximetry 100 100 100 Oxygen Delivery Method 05/04/22 15:30 05/04/22 16:00 05/04/22 19:24 Pulse Rate 95 H 109 H 95 H Respiratory Rate 32 H 32 H 16 Blood Pressure 116/74 Pulse Oximetry 99 99 Oxygen Delivery Method Room Air MDM - SOB/Dyspnea <Luis Miguel Hoover PA-C - Last Filed: 05/04/22 20:18> Lab Data Result diagrams: 05/04/22 13:12 05/04/22 13:12 Labs: Lab Results 05/04/22 05/04/22 05/04/22 Range/Units 11:00 13:12 13:12 WBC 5.7 (4.5-11.0) X10^3/uL RBC 4.57 (4.0-5.2) X10^6/uL Hgb 13.4 (12.0-16.0) g/dL Hct 39.4 (36-46) % MCV 86.1 (80-100) fL MCH 29.4 (26-34) PG MCHC 34.1 (30-36) % RDW 12.7 (11.6-14.8) % Plt Count 276 (150-400) X10^3/uL Neut % (Auto) 58.7 (50-75) % Lymph % (Auto) 27.9 (25-40) % [place] % (Auto) 11.9 (3-14) % Eos % (Auto) 1.1 L (2-4) % Baso % (Auto) 0.4 (0-2) % Neut # (Auto) 3400 (2009-2750) /uL Lymph # (Auto) 1600 (1793-4664) /uL [place] # (Auto) 700 (0-900) /uL Eos # (Auto) 100 (0-450) /uL Baso # (Auto) 0 (0-100) /uL PT (10.1-12.7) SECONDS INR (0.9-1.3) APTT (26.4-36.2) SECONDS Sodium 140 (137-145) mmol/L Potassium 3.7 (3.4-5.1) mmol/L Chloride 104 (98-107) mmol/L Carbon Dioxide 24 (22-32) mmol/L BUN 8 (7-17) mg/dL Creatinine 0.61 (0.52-1.04) mg/dL Estimated GFR > 60 (>60) mL/min BUN/Creatinine Ratio 13.1 (6-22) Glucose 83 (70-100) mg/dL Lactate (0.7-2.1) mmol/L Calcium 9.4 (8.4-10.2) mg/dL Total Bilirubin 0.5 (0.2-1.3) mg/dL AST 32 (14-36) IU/L ALT 16 (<35) IU/L Alkaline Phosphatase 91 (38-126) U/L Total Creatine Kinase (30-135) U/L CK-MB (CK-2) (<2.37) ng/mL CK-MB (CK-2) Rel Index (1.5-5.0) % Troponin I (0.01-0.034) ng/mL Total Protein 9.0 H (6.3-8.2) g/dL Albumin 5.3 H (3.5-5.0) g/dL Globulin 3.7 (1.7-4.1) g/dL Albumin/Globulin Ratio 1.4 (1.0-2.8) Urine Color Urine Appearance Urine pH (4.5-8.0) Ur Specific [place] (1.000-1.035) Urine Protein (Negative) Urine Glucose (UA) (Negative) g/dL Urine Ketones (NEGATIVE) Urine Occult Blood (Negative) Urine Nitrate (Negative) Urine Bilirubin (NEGATIVE) Ur Bilirubin Confirm (Negative) Urine Urobilinogen (0.2) E.U./dL Ur Leukocyte Esterase (NEGATIVE) Urine RBC (0-5/HPF) Urine WBC (0-5/HPF) Ur Squamous Epith Cells (0-5/HPF) Ur Transition Epith Cell (0-5/HPF) Amorphous Sediment Urine Bacteria (None) Ur Culture Indicated? Micro UA Comment Urine Test (Negative) U Opiates 300ng/mL cut (Negative) Ur Oxycodone Screen (Negative) Urine Methadone Screen (Negative) Ur Barbiturates Screen (Negative) U Tricyclic Antidepress (Negative) Ur Phencyclidine Scrn (Negative) Ur Amphetamines Screen (Negative) U Methamphetamines Scrn (Negative) Ur MDMA Scrn (Ecstasy) (Negative) U Benzodiazepines Scrn (Negative) Urine Cocaine Screen (Negative) U Marijuana (THC) Screen (Negative) Chlamy pneumoniae PCR (Not Detect) Adenovirus (PCR) (Not Detect) B. pertussis DNA (PCR) (Not Detecte) B.parapertussis DNA PCR (Not Detecte) Coronavirus OC43 (PCR) (Not Detect) Coronavirus HKU1 (PCR) (Not Detect) Coronavirus 229E (PCR) (Not Detect) SARS-CoV-2 (PCR) Negative (Negative) Coronavirus NL63 (PCR) (Not Detect) Human Metapneumovir PCR (Not Detect) Influenza Type A (PCR) (Not Detect) Influenza Type B (PCR) (Not Detect) M. pneumoniae (PCR) (Not Detect) Parainfluenza 1 (PCR) (Not Detect) Parainfluenza 2 (PCR) (Not Detect) Parainfluenza 3 (PCR) (Not Detect) Parainfluenza 4 (PCR) (Not Detect) RSV (PCR) (Not Detect) Entero/Rhino (PCR) (Not Detect) 05/04/22 05/04/22 05/04/22 Range/Units 13:12 13:12 13:12 WBC (4.5-11.0) X10^3/uL RBC (4.0-5.2) X10^6/uL Hgb (12.0-16.0) g/dL Hct (36-46) % MCV (80-100) fL MCH (26-34) PG MCHC (30-36) % RDW (11.6-14.8) % Plt Count (150-400) X10^3/uL Neut % (Auto) (50-75) % Lymph % (Auto) (25-40) % [place] % (Auto) (3-14) % Eos % (Auto) (2-4) % Baso % (Auto) (0-2) % Neut # (Auto) (3311-7804) /uL Lymph # (Auto) (8174-4193) /uL [place] # (Auto) (0-900) /uL Eos # (Auto) (0-450) /uL Baso # (Auto) (0-100) /uL PT 13.4 H (10.1-12.7) SECONDS INR 1.2 (0.9-1.3) APTT 41 H (26.4-36.2) SECONDS Sodium (137-145) mmol/L Potassium (3.4-5.1) mmol/L Chloride (98-107) mmol/L Carbon Dioxide (22-32) mmol/L BUN (7-17) mg/dL Creatinine (0.52-1.04) mg/dL Estimated GFR (>60) mL/min BUN/Creatinine Ratio (6-22) Glucose (70-100) mg/dL Lactate 0.9 (0.7-2.1) mmol/L Calcium (8.4-10.2) mg/dL Total Bilirubin (0.2-1.3) mg/dL AST (14-36) IU/L ALT (<35) IU/L Alkaline Phosphatase (38-126) U/L Total Creatine Kinase 213 H (30-135) U/L CK-MB (CK-2) 1.19 (<2.37) ng/mL CK-MB (CK-2) Rel Index 0.6 L (1.5-5.0) % Troponin I < 0.012 (0.01-0.034) ng/mL Total Protein (6.3-8.2) g/dL Albumin (3.5-5.0) g/dL Globulin (1.7-4.1) g/dL Albumin/Globulin Ratio (1.0-2.8) Urine Color Urine Appearance Urine pH (4.5-8.0) Ur Specific [place] (1.000-1.035) Urine Protein (Negative) Urine Glucose (UA) (Negative) g/dL Urine Ketones (NEGATIVE) Urine Occult Blood (Negative) Urine Nitrate (Negative) Urine Bilirubin (NEGATIVE) Ur Bilirubin Confirm (Negative) Urine Urobilinogen (0.2) E.U./dL Ur Leukocyte Esterase (NEGATIVE) Urine RBC (0-5/HPF) Urine WBC (0-5/HPF) Ur Squamous Epith Cells (0-5/HPF) Ur Transition Epith Cell (0-5/HPF) Amorphous Sediment Urine Bacteria (None) Ur Culture Indicated? Micro UA Comment Urine Test (Negative) U Opiates 300ng/mL cut (Negative) Ur Oxycodone Screen (Negative) Urine Methadone Screen (Negative) Ur Barbiturates Screen (Negative) U Tricyclic Antidepress (Negative) Ur Phencyclidine Scrn (Negative) Ur Amphetamines Screen (Negative) U Methamphetamines Scrn (Negative) Ur MDMA Scrn (Ecstasy) (Negative) U Benzodiazepines Scrn (Negative) Urine Cocaine Screen (Negative) U Marijuana (THC) Screen (Negative) Chlamy pneumoniae PCR (Not Detect) Adenovirus (PCR) (Not Detect) B. pertussis DNA (PCR) (Not Detecte) B.parapertussis DNA PCR (Not Detecte) Coronavirus OC43 (PCR) (Not Detect) Coronavirus HKU1 (PCR) (Not Detect) Coronavirus 229E (PCR) (Not Detect) SARS-CoV-2 (PCR) (Negative) Coronavirus NL63 (PCR) (Not Detect) Human Metapneumovir PCR (Not Detect) Influenza Type A (PCR) (Not Detect) Influenza Type B (PCR) (Not Detect) M. pneumoniae (PCR) (Not Detect) Parainfluenza 1 (PCR) (Not Detect) Parainfluenza 2 (PCR) (Not Detect) Parainfluenza 3 (PCR) (Not Detect) Parainfluenza 4 (PCR) (Not Detect) RSV (PCR) (Not Detect) Entero/Rhino (PCR) (Not Detect) 05/04/22 05/04/22 05/04/22 Range/Units 14:54 16:57 16:57 WBC (4.5-11.0) X10^3/uL RBC (4.0-5.2) X10^6/uL Hgb (12.0-16.0) g/dL Hct (36-46) % MCV (80-100) fL MCH (26-34) PG MCHC (30-36) % RDW (11.6-14.8) % Plt Count (150-400) X10^3/uL Neut % (Auto) (50-75) % Lymph % (Auto) (25-40) % [place] % (Auto) (3-14) % Eos % (Auto) (2-4) % Baso % (Auto) (0-2) % Neut # (Auto) (8262-3254) /uL Lymph # (Auto) (0747-0865) /uL [place] # (Auto) (0-900) /uL Eos # (Auto) (0-450) /uL Baso # (Auto) (0-100) /uL PT (10.1-12.7) SECONDS INR (0.9-1.3) APTT (26.4-36.2) SECONDS Sodium (137-145) mmol/L Potassium (3.4-5.1) mmol/L Chloride (98-107) mmol/L Carbon Dioxide (22-32) mmol/L BUN (7-17) mg/dL Creatinine (0.52-1.04) mg/dL Estimated GFR (>60) mL/min BUN/Creatinine Ratio (6-22) Glucose (70-100) mg/dL Lactate (0.7-2.1) mmol/L Calcium (8.4-10.2) mg/dL Total Bilirubin (0.2-1.3) mg/dL AST (14-36) IU/L ALT (<35) IU/L Alkaline Phosphatase (38-126) U/L Total Creatine Kinase (30-135) U/L CK-MB (CK-2) (<2.37) ng/mL CK-MB (CK-2) Rel Index (1.5-5.0) % Troponin I (0.01-0.034) ng/mL Total Protein (6.3-8.2) g/dL Albumin (3.5-5.0) g/dL Globulin (1.7-4.1) g/dL Albumin/Globulin Ratio (1.0-2.8) Urine Color Red Urine Appearance Cloudy Urine pH 5.5 (4.5-8.0) Ur Specific [place] 1.020 (1.000-1.035) Urine Protein 2+ H (Negative) Urine Glucose (UA) Negative (Negative) g/dL Urine Ketones 2+ H (NEGATIVE) Urine Occult Blood 3+ H (Negative) Urine Nitrate Negative (Negative) Urine Bilirubin 1+ H (NEGATIVE) Ur Bilirubin Confirm Negative (Negative) Urine Urobilinogen 0.2 (0.2) E.U./dL Ur Leukocyte Esterase Trace H (NEGATIVE) Urine RBC 10-30/hpf H (0-5/HPF) Urine WBC 5-10/hpf H (0-5/HPF) Ur Squamous Epith Cells 10-30 /hpf H D (0-5/HPF) Ur Transition Epith Cell 1-5/hpf (0-5/HPF) Amorphous Sediment 1+ Urine Bacteria Moderate (10-30) H (None) Ur Culture Indicated? Cult not indicated Micro UA Comment Moderate clue cells Urine Test (Negative) U Opiates 300ng/mL cut Negative (Negative) Ur Oxycodone Screen Negative (Negative) Urine Methadone Screen Negative (Negative) Ur Barbiturates Screen Negative (Negative) U Tricyclic Antidepress Positive H (Negative) Ur Phencyclidine Scrn Negative (Negative) Ur Amphetamines Screen Negative (Negative) U Methamphetamines Scrn Negative (Negative) Ur MDMA Scrn (Ecstasy) Negative (Negative) U Benzodiazepines Scrn Negative (Negative) Urine Cocaine Screen Negative (Negative) U Marijuana (THC) Screen Positive H (Negative) Chlamy pneumoniae PCR Not detected (Not Detect) Adenovirus (PCR) Not detected (Not Detect) B. pertussis DNA (PCR) Not detected (Not Detecte) B.parapertussis DNA PCR Not detected (Not Detecte) Coronavirus OC43 (PCR) Detected H (Not Detect) Coronavirus HKU1 (PCR) Not detected (Not Detect) Coronavirus 229E (PCR) Not detected (Not Detect) SARS-CoV-2 (PCR) Not detected (Negative) Coronavirus NL63 (PCR) Not detected (Not Detect) Human Metapneumovir PCR Not detected (Not Detect) Influenza Type A (PCR) Not detected (Not Detect) Influenza Type B (PCR) Not detected (Not Detect) M. pneumoniae (PCR) Not detected (Not Detect) Parainfluenza 1 (PCR) Not detected (Not Detect) Parainfluenza 2 (PCR) Not detected (Not Detect) Parainfluenza 3 (PCR) Not detected (Not Detect) Parainfluenza 4 (PCR) Not detected (Not Detect) RSV (PCR) Not detected (Not Detect) Entero/Rhino (PCR) Not detected (Not Detect) 05/04/22 Range/Units 16:57 WBC (4.5-11.0) X10^3/uL RBC (4.0-5.2) X10^6/uL Hgb (12.0-16.0) g/dL Hct (36-46) % MCV (80-100) fL MCH (26-34) PG MCHC (30-36) % RDW (11.6-14.8) % Plt Count (150-400) X10^3/uL Neut % (Auto) (50-75) % Lymph % (Auto) (25-40) % [place] % (Auto) (3-14) % Eos % (Auto) (2-4) % Baso % (Auto) (0-2) % Neut # (Auto) (4513-5924) /uL Lymph # (Auto) (6264-5476) /uL [place] # (Auto) (0-900) /uL Eos # (Auto) (0-450) /uL Baso # (Auto) (0-100) /uL PT (10.1-12.7) SECONDS INR (0.9-1.3) APTT (26.4-36.2) SECONDS Sodium (137-145) mmol/L Potassium (3.4-5.1) mmol/L Chloride (98-107) mmol/L Carbon Dioxide (22-32) mmol/L BUN (7-17) mg/dL Creatinine (0.52-1.04) mg/dL Estimated GFR (>60) mL/min BUN/Creatinine Ratio (6-22) Glucose (70-100) mg/dL Lactate (0.7-2.1) mmol/L Calcium (8.4-10.2) mg/dL Total Bilirubin (0.2-1.3) mg/dL AST (14-36) IU/L ALT (<35) IU/L Alkaline Phosphatase (38-126) U/L Total Creatine Kinase (30-135) U/L CK-MB (CK-2) (<2.37) ng/mL CK-MB (CK-2) Rel Index (1.5-5.0) % Troponin I (0.01-0.034) ng/mL Total Protein (6.3-8.2) g/dL Albumin (3.5-5.0) g/dL Globulin (1.7-4.1) g/dL Albumin/Globulin Ratio (1.0-2.8) Urine Color Urine Appearance Urine pH (4.5-8.0) Ur Specific [place] (1.000-1.035) Urine Protein (Negative) Urine Glucose (UA) (Negative) g/dL Urine Ketones (NEGATIVE) Urine Occult Blood (Negative) Urine Nitrate (Negative) Urine Bilirubin (NEGATIVE) Ur Bilirubin Confirm (Negative) Urine Urobilinogen (0.2) E.U./dL Ur Leukocyte Esterase (NEGATIVE) Urine RBC (0-5/HPF) Urine WBC (0-5/HPF) Ur Squamous Epith Cells (0-5/HPF) Ur Transition Epith Cell (0-5/HPF) Amorphous Sediment Urine Bacteria (None) Ur Culture Indicated? Micro UA Comment Urine Test Negative (Negative) U Opiates 300ng/mL cut (Negative) Ur Oxycodone Screen (Negative) Urine Methadone Screen (Negative) Ur Barbiturates Screen (Negative) U Tricyclic Antidepress (Negative) Ur Phencyclidine Scrn (Negative) Ur Amphetamines Screen (Negative) U Methamphetamines Scrn (Negative) Ur MDMA Scrn (Ecstasy) (Negative) U Benzodiazepines Scrn (Negative) Urine Cocaine Screen (Negative) U Marijuana (THC) Screen (Negative) Chlamy pneumoniae PCR (Not Detect) Adenovirus (PCR) (Not Detect) B. pertussis DNA (PCR) (Not Detecte) B.parapertussis DNA PCR (Not Detecte) Coronavirus OC43 (PCR) (Not Detect) Coronavirus HKU1 (PCR) (Not Detect) Coronavirus 229E (PCR) (Not Detect) SARS-CoV-2 (PCR) (Negative) Coronavirus NL63 (PCR) (Not Detect) Human Metapneumovir PCR (Not Detect) Influenza Type A (PCR) (Not Detect) Influenza Type B (PCR) (Not Detect) M. pneumoniae (PCR) (Not Detect) Parainfluenza 1 (PCR) (Not Detect) Parainfluenza 2 (PCR) (Not Detect) Parainfluenza 3 (PCR) (Not Detect) Parainfluenza 4 (PCR) (Not Detect) RSV (PCR) (Not Detect) Entero/Rhino (PCR) (Not Detect) Imaging Data CT scan - head: Radiologist's Impression: PROCEDURE:? CT STROKE ? INDICATIONS:? Left footdrop, left-sided weakness ? TECHNIQUE:? Noncontrast 4.5 mm thick angled axial sections acquired from the foramen magnum to the vertex, with coronal reformats.? For radiation dose reduction, the following was used:? automated exposure control, adjustment of mA and/or kV according to patient size.? ? COMPARISON:? [facility], CT, CT HEAD/BRAIN WO [facility], 10/27/2021, 17:47. ? FINDINGS:? Image quality:? Excellent.? ? CSF spaces:? Basal cisterns are patent.? No extra-axial fluid collections.? Ventricles are normal in size and shape.? ? Brain:? No midline shift.? No intracranial masses or hemorrhage.? Avila-white matter interface is normal.? ? Skull and face:? Calvarium and visualized facial bones are intact, without suspicious lesions.? ? Sinuses:? Visualized sinuses and mastoids are clear.? ? IMPRESSION:? ? 1. No acute intracranial abnormalities. ? The result was discussed with the provider in [facility]. ? ? This study fulfills neurological imaging criteria for inclusion or exclusion of acute stroke therapies based on available published neurological imaging guidelines.? ? ? Dictated by: Frandy Alexander M.D. on 05/04/2022 at 16:29 ? ? Approved by: Frandy Alexander M.D. on 05/04/2022 at 16:33 CTA scan-head and neck: Radiologist's Impression: PROCEDURE:? CT ANGIO HEAD AND NECK ? INDICATIONS:? Left-sided weakness ? TECHNIQUE:? After the administration of intravenous contrast, 1 mm thick sections acquired from the aortic arch through the [place].? Post-contrast 4.5 mm thick sections then re-acquired from the foramen magnum to the vertex.? For radiation dose reduction, the following was used:? automated exposure control, adjustment of mA and/or kV according to patient size.? ? COMPARISON:? [facility], CT, CT ANGIO HEAD AND NECK, 11/07/2021, 13:19. ? FINDINGS:? Image quality:? Excellent.? ? HEAD CT ANGIOGRAPHY:? Anterior circulation:? Intracranial internal carotid arteries are normal in size and flow.? The flow within the paired anterior cerebral arteries is normal and symmetric.? The flow within the middle cerebral arteries is normal and symmetric.? The anterior communicating artery is seen.? No aneurysms are seen.? ? Posterior circulation:? Visualized portions of the vertebral arteries demonstrate normal caliber, and join to form a normal appearing basilar artery.? Flow within the posterior cerebral arteries is normal and symmetric.? No aneurysms are seen.? ? NECK CT ANGIOGRAPHY:? Carotid system:? The great vessels demonstrate a conventional anatomy as they arise from the aortic arch.? The origins of the common carotid arteries appear patent.? The common carotid arteries demonstrate normal caliber and courses.? The bifurcation regions are both widely patent.? The internal carotid arteries demonstrate normal calibers and courses.? ? Posterior circulation:? The origins of the vertebral arteries both appear widely patent.? The more superior extracranial portions of both vertebral arteries also demonstrate normal courses and calibers.? They join to form a normal appearing basilar artery.? ? Soft tissues:? Visualized neck soft tissues demonstrate no suspicious abnor malities.? ? Bones:? No suspicious bony lesions.? Visualized cervical spine appears normally aligned.? IMPRESSION:? ? 1. Unremarkable intracranial CT angiogram of the brain without large vessel occlusion, aneurysm or vascular malformation. 2. Normal CT angiogram of the neck.? No evidence of stenosis.? ? Any quantitative measurements of stenosis were performed using NASCET criteria.? Approved by: Nikko Rivera M.D. on 05/04/2022 at 15:49 US arterial duplex-left lower extremity: Radiologist's Impression: PROCEDURE:? US ARTERIAL DUPLEX LE LT ? INDICATIONS:? Loss of sensation left lower extremity ? TECHNIQUE:? Color and pulse Doppler interrogation was performed of the left lower extremity arterial system, with image documentation.? ? COMPARISON:? None. ? FINDINGS:? Common femoral artery:? 172 cm/sec, with triphasic flow.? Deep femoral artery:? 143 cm/sec, with triphasic flow.? Proximal superficial femoral artery:? 126 cm/sec, with triphasic flow.? Mid superficial femoral artery:? 176 cm/sec, with triphasic flow.? Distal superficial femoral artery:? 135 cm/sec, with triphasic flow.? Popliteal artery:? 90 cm/sec, with triphasic flow.? Posterior tibial artery:? 44 cm/sec, with triphasic flow.? Anterior tibial artery/dorsalis pedis:? 44 cm/sec, with triphasic flow.? Avila-scale imaging description:? No visualized plaque. ? ? IMPRESSION:? Normal exam. ? Dictated by: Gracie Charles M.D. on 05/04/2022 at 17:16 ? ? Approved by: Gracie Charles M.D. on 05/04/2022 at 17:18 ? MDM Narrative Medical decision making narrative: Differential diagnosis to consider but not limited to trauma versus drug withdrawal versus CVA versus TIA versus conversion disorder. I discussed results of lab studies and imaging with patient and informed her that other than a coronavirus detection on respiratory panel that studies were within normal limits. Patient was able to walk into the emergency department with the assistance of a cane and had been intermittently using her left upper extremity throughout exam. Movement of the extremities appears inconsistent with some increased weakness when focus is placed on the extremity. MRI of the head was ordered, however patient declined and said that she would like to follow up with primary care for further evaluation. I discussed risks and benefits of this, however patient states she would like to be discharged. I urged the patient to visit the [facility] to see about obtaining wheelchair. Patient expresses understanding and agrees to plan. Strict return precautions were discussed with the patient prior to discharge. <Maricarmen Muñoz, DO - Last Filed: 05/10/22 12:48> Lab Data Labs: Lab Results 05/04/22 05/04/22 05/04/22 Range/Units 11:00 13:12 13:12 WBC 5.7 (4.5-11.0) X10^3/uL RBC 4.57 (4.0-5.2) X10^6/uL Hgb 13.4 (12.0-16.0) g/dL Hct 39.4 (36-46) % MCV 86.1 (80-100) fL MCH 29.4 (26-34) PG MCHC 34.1 (30-36) % RDW 12.7 (11.6-14.8) % Plt Count 276 (150-400) X10^3/uL Neut % (Auto) 58.7 (50-75) % Lymph % (Auto) 27.9 (25-40) % [place] % (Auto) 11.9 (3-14) % Eos % (Auto) 1.1 L (2-4) % Baso % (Auto) 0.4 (0-2) % Neut # (Auto) 3400 (6577-5891) /uL Lymph # (Auto) 1600 (0260-7615) /uL [place] # (Auto) 700 (0-900) /uL Eos # (Auto) 100 (0-450) /uL Baso # (Auto) 0 (0-100) /uL PT (10.1-12.7) SECONDS INR (0.9-1.3) APTT (26.4-36.2) SECONDS Sodium 140 (137-145) mmol/L Potassium 3.7 (3.4-5.1) mmol/L Chloride 104 (98-107) mmol/L Carbon Dioxide 24 (22-32) mmol/L BUN 8 (7-17) mg/dL Creatinine 0.61 (0.52-1.04) mg/dL Estimated GFR > 60 (>60) mL/min BUN/Creatinine Ratio 13.1 (6-22) Glucose 83 (70-100) mg/dL Lactate (0.7-2.1) mmol/L Calcium 9.4 (8.4-10.2) mg/dL Total Bilirubin 0.5 (0.2-1.3) mg/dL AST 32 (14-36) IU/L ALT 16 (<35) IU/L Alkaline Phosphatase 91 (38-126) U/L Total Creatine Kinase (30-135) U/L CK-MB (CK-2) (<2.37) ng/mL CK-MB (CK-2) Rel Index (1.5-5.0) % Troponin I (0.01-0.034) ng/mL Total Protein 9.0 H (6.3-8.2) g/dL Albumin 5.3 H (3.5-5.0) g/dL Globulin 3.7 (1.7-4.1) g/dL Albumin/Globulin Ratio 1.4 (1.0-2.8) Urine Color Urine Appearance Urine pH (4.5-8.0) Ur Specific [place] (1.000-1.035) Urine Protein (Negative) Urine Glucose (UA) (Negative) g/dL Urine Ketones (NEGATIVE) Urine Occult Blood (Negative) Urine Nitrate (Negative) Urine Bilirubin (NEGATIVE) Ur Bilirubin Confirm (Negative) Urine Urobilinogen (0.2) E.U./dL Ur Leukocyte Esterase (NEGATIVE) Urine RBC (0-5/HPF) Urine WBC (0-5/HPF) Ur Squamous Epith Cells (0-5/HPF) Ur Transition Epith Cell (0-5/HPF) Amorphous Sediment Urine Bacteria (None) Ur Culture Indicated? Micro UA Comment Urine Test (Negative) U Opiates 300ng/mL cut (Negative) Ur Oxycodone Screen (Negative) Urine Methadone Screen (Negative) Ur Barbiturates Screen (Negative) U Tricyclic Antidepress (Negative) Ur Phencyclidine Scrn (Negative) Ur Amphetamines Screen (Negative) U Methamphetamines Scrn (Negative) Ur MDMA Scrn (Ecstasy) (Negative) U Benzodiazepines Scrn (Negative) Urine Cocaine Screen (Negative) U Marijuana (THC) Screen (Negative) Chlamy pneumoniae PCR (Not Detect) Adenovirus (PCR) (Not Detect) B. pertussis DNA (PCR) (Not Detecte) B.parapertussis DNA PCR (Not Detecte) Coronavirus OC43 (PCR) (Not Detect) Coronavirus HKU1 (PCR) (Not Detect) Coronavirus 229E (PCR) (Not Detect) SARS-CoV-2 (PCR) Negative (Negative) Coronavirus NL63 (PCR) (Not Detect) Human Metapneumovir PCR (Not Detect) Influenza Type A (PCR) (Not Detect) Influenza Type B (PCR) (Not Detect) M. pneumoniae (PCR) (Not Detect) Parainfluenza 1 (PCR) (Not Detect) Parainfluenza 2 (PCR) (Not Detect) Parainfluenza 3 (PCR) (Not Detect) Parainfluenza 4 (PCR) (Not Detect) RSV (PCR) (Not Detect) Entero/Rhino (PCR) (Not Detect) 05/04/22 05/04/22 05/04/22 Range/Units 13:12 13:12 13:12 WBC (4.5-11.0) X10^3/uL RBC (4.0-5.2) X10^6/uL Hgb (12.0-16.0) g/dL Hct (36-46) % MCV (80-100) fL MCH (26-34) PG MCHC (30-36) % RDW (11.6-14.8) % Plt Count (150-400) X10^3/uL Neut % (Auto) (50-75) % Lymph % (Auto) (25-40) % [place] % (Auto) (3-14) % Eos % (Auto) (2-4) % Baso % (Auto) (0-2) % Neut # (Auto) (7387-7117) /uL Lymph # (Auto) (7826-8005) /uL [place] # (Auto) (0-900) /uL Eos # (Auto) (0-450) /uL Baso # (Auto) (0-100) /uL PT 13.4 H (10.1-12.7) SECONDS INR 1.2 (0.9-1.3) APTT 41 H (26.4-36.2) SECONDS Sodium (137-145) mmol/L Potassium (3.4-5.1) mmol/L Chloride (98-107) mmol/L Carbon Dioxide (22-32) mmol/L BUN (7-17) mg/dL Creatinine (0.52-1.04) mg/dL Estimated GFR (>60) mL/min BUN/Creatinine Ratio (6-22) Glucose (70-100) mg/dL Lactate 0.9 (0.7-2.1) mmol/L Calcium (8.4-10.2) mg/dL Total Bilirubin (0.2-1.3) mg/dL AST (14-36) IU/L ALT (<35) IU/L Alkaline Phosphatase (38-126) U/L Total Creatine Kinase 213 H (30-135) U/L CK-MB (CK-2) 1.19 (<2.37) ng/mL CK-MB (CK-2) Rel Index 0.6 L (1.5-5.0) % Troponin I < 0.012 (0.01-0.034) ng/mL Total Protein (6.3-8.2) g/dL Albumin (3.5-5.0) g/dL Globulin (1.7-4.1) g/dL Albumin/Globulin Ratio (1.0-2.8) Urine Color Urine Appearance Urine pH (4.5-8.0) Ur Specific [place] (1.000-1.035) Urine Protein (Negative) Urine Glucose (UA) (Negative) g/dL Urine Ketones (NEGATIVE) Urine Occult Blood (Negative) Urine Nitrate (Negative) Urine Bilirubin (NEGATIVE) Ur Bilirubin Confirm (Negative) Urine Urobilinogen (0.2) E.U./dL Ur Leukocyte Esterase (NEGATIVE) Urine RBC (0-5/HPF) Urine WBC (0-5/HPF) Ur Squamous Epith Cells (0-5/HPF) Ur Transition Epith Cell (0-5/HPF) Amorphous Sediment Urine Bacteria (None) Ur Culture Indicated? Micro UA Comment Urine Test (Negative) U Opiates 300ng/mL cut (Negative) Ur Oxycodone Screen (Negative) Urine Methadone Screen (Negative) Ur Barbiturates Screen (Negative) U Tricyclic Antidepress (Negative) Ur Phencyclidine Scrn (Negative) Ur Amphetamines Screen (Negative) U Methamphetamines Scrn (Negative) Ur MDMA Scrn (Ecstasy) (Negative) U Benzodiazepines Scrn (Negative) Urine Cocaine Screen (Negative) U Marijuana (THC) Screen (Negative) Chlamy pneumoniae PCR (Not Detect) Adenovirus (PCR) (Not Detect) B. pertussis DNA (PCR) (Not Detecte) B.parapertussis DNA PCR (Not Detecte) Coronavirus OC43 (PCR) (Not Detect) Coronavirus HKU1 (PCR) (Not Detect) Coronavirus 229E (PCR) (Not Detect) SARS-CoV-2 (PCR) (Negative) Coronavirus NL63 (PCR) (Not Detect) Human Metapneumovir PCR (Not Detect) Influenza Type A (PCR) (Not Detect) Influenza Type B (PCR) (Not Detect) M. pneumoniae (PCR) (Not Detect) Parainfluenza 1 (PCR) (Not Detect) Parainfluenza 2 (PCR) (Not Detect) Parainfluenza 3 (PCR) (Not Detect) Parainfluenza 4 (PCR) (Not Detect) RSV (PCR) (Not Detect) Entero/Rhino (PCR) (Not Detect) 05/04/22 05/04/22 05/04/22 Range/Units 14:54 16:57 16:57 WBC (4.5-11.0) X10^3/uL RBC (4.0-5.2) X10^6/uL Hgb (12.0-16.0) g/dL Hct (36-46) % MCV (80-100) fL MCH (26-34) PG MCHC (30-36) % RDW (11.6-14.8) % Plt Count (150-400) X10^3/uL Neut % (Auto) (50-75) % Lymph % (Auto) (25-40) % [place] % (Auto) (3-14) % Eos % (Auto) (2-4) % Baso % (Auto) (0-2) % Neut # (Auto) (4707-2842) /uL Lymph # (Auto) (7161-0980) /uL [place] # (Auto) (0-900) /uL Eos # (Auto) (0-450) /uL Baso # (Auto) (0-100) /uL PT (10.1-12.7) SECONDS INR (0.9-1.3) APTT (26.4-36.2) SECONDS Sodium (137-145) mmol/L Potassium (3.4-5.1) mmol/L Chloride (98-107) mmol/L Carbon Dioxide (22-32) mmol/L BUN (7-17) mg/dL Creatinine (0.52-1.04) mg/dL Estimated GFR (>60) mL/min BUN/Creatinine Ratio (6-22) Glucose (70-100) mg/dL Lactate (0.7-2.1) mmol/L Calcium (8.4-10.2) mg/dL Total Bilirubin (0.2-1.3) mg/dL AST (14-36) IU/L ALT (<35) IU/L Alkaline Phosphatase (38-126) U/L Total Creatine Kinase (30-135) U/L CK-MB (CK-2) (<2.37) ng/mL CK-MB (CK-2) Rel Index (1.5-5.0) % Troponin I (0.01-0.034) ng/mL Total Protein (6.3-8.2) g/dL Albumin (3.5-5.0) g/dL Globulin (1.7-4.1) g/dL Albumin/Globulin Ratio (1.0-2.8) Urine Color Red Urine Appearance Cloudy Urine pH 5.5 (4.5-8.0) Ur Specific [place] 1.020 (1.000-1.035) Urine Protein 2+ H (Negative) Urine Glucose (UA) Negative (Negative) g/dL Urine Ketones 2+ H (NEGATIVE) Urine Occult Blood 3+ H (Negative) Urine Nitrate Negative (Negative) Urine Bilirubin 1+ H (NEGATIVE) Ur Bilirubin Confirm Negative (Negative) Urine Urobilinogen 0.2 (0.2) E.U./dL Ur Leukocyte Esterase Trace H (NEGATIVE) Urine RBC 10-30/hpf H (0-5/HPF) Urine WBC 5-10/hpf H (0-5/HPF) Ur Squamous Epith Cells 10-30 /hpf H D (0-5/HPF) Ur Transition Epith Cell 1-5/hpf (0-5/HPF) Amorphous Sediment 1+ Urine Bacteria Moderate (10-30) H (None) Ur Culture Indicated? Cult not indicated Micro UA Comment Moderate clue cells Urine Test (Negative) U Opiates 300ng/mL cut Negative (Negative) Ur Oxycodone Screen Negative (Negative) Urine Methadone Screen Negative (Negative) Ur Barbiturates Screen Negative (Negative) U Tricyclic Antidepress Positive H (Negative) Ur Phencyclidine Scrn Negative (Negative) Ur Amphetamines Screen Negative (Negative) U Methamphetamines Scrn Negative (Negative) Ur MDMA Scrn (Ecstasy) Negative (Negative) U Benzodiazepines Scrn Negative (Negative) Urine Cocaine Screen Negative (Negative) U Marijuana (THC) Screen Positive H (Negative) Chlamy pneumoniae PCR Not detected (Not Detect) Adenovirus (PCR) Not detected (Not Detect) B. pertussis DNA (PCR) Not detected (Not Detecte) B.parapertussis DNA PCR Not detected (Not Detecte) Coronavirus OC43 (PCR) Detected H (Not Detect) Coronavirus HKU1 (PCR) Not detected (Not Detect) Coronavirus 229E (PCR) Not detected (Not Detect) SARS-CoV-2 (PCR) Not detected (Negative) Coronavirus NL63 (PCR) Not detected (Not Detect) Human Metapneumovir PCR Not detected (Not Detect) Influenza Type A (PCR) Not detected (Not Detect) Influenza Type B (PCR) Not detected (Not Detect) M. pneumoniae (PCR) Not detected (Not Detect) Parainfluenza 1 (PCR) Not detected (Not Detect) Parainfluenza 2 (PCR) Not detected (Not Detect) Parainfluenza 3 (PCR) Not detected (Not Detect) Parainfluenza 4 (PCR) Not detected (Not Detect) RSV (PCR) Not detected (Not Detect) Entero/Rhino (PCR) Not detected (Not Detect) 05/04/22 Range/Units 16:57 WBC (4.5-11.0) X10^3/uL RBC (4.0-5.2) X10^6/uL Hgb (12.0-16.0) g/dL Hct (36-46) % MCV (80-100) fL MCH (26-34) PG MCHC (30-36) % RDW (11.6-14.8) % Plt Count (150-400) X10^3/uL Neut % (Auto) (50-75) % Lymph % (Auto) (25-40) % [place] % (Auto) (3-14) % Eos % (Auto) (2-4) % Baso % (Auto) (0-2) % Neut # (Auto) (4051-5554) /uL Lymph # (Auto) (9495-1626) /uL [place] # (Auto) (0-900) /uL Eos # (Auto) (0-450) /uL Baso # (Auto) (0-100) /uL PT (10.1-12.7) SECONDS INR (0.9-1.3) APTT (26.4-36.2) SECONDS Sodium (137-145) mmol/L Potassium (3.4-5.1) mmol/L Chloride (98-107) mmol/L Carbon Dioxide (22-32) mmol/L BUN (7-17) mg/dL Creatinine (0.52-1.04) mg/dL Estimated GFR (>60) mL/min BUN/Creatinine Ratio (6-22) Glucose (70-100) mg/dL Lactate (0.7-2.1) mmol/L Calcium (8.4-10.2) mg/dL Total Bilirubin (0.2-1.3) mg/dL AST (14-36) IU/L ALT (<35) IU/L Alkaline Phosphatase (38-126) U/L Total Creatine Kinase (30-135) U/L CK-MB (CK-2) (<2.37) ng/mL CK-MB (CK-2) Rel Index (1.5-5.0) % Troponin I (0.01-0.034) ng/mL Total Protein (6.3-8.2) g/dL Albumin (3.5-5.0) g/dL Globulin (1.7-4.1) g/dL Albumin/Globulin Ratio (1.0-2.8) Urine Color Urine Appearance Urine pH (4.5-8.0) Ur Specific [place] (1.000-1.035) Urine Protein (Negative) Urine Glucose (UA) (Negative) g/dL Urine Ketones (NEGATIVE) Urine Occult Blood (Negative) Urine Nitrate (Negative) Urine Bilirubin (NEGATIVE) Ur Bilirubin Confirm (Negative) Urine Urobilinogen (0.2) E.U./dL Ur Leukocyte Esterase (NEGATIVE) Urine RBC (0-5/HPF) Urine WBC (0-5/HPF) Ur Squamous Epith Cells (0-5/HPF) Ur Transition Epith Cell (0-5/HPF) Amorphous Sediment Urine Bacteria (None) Ur Culture Indicated? Micro UA Comment Urine Test Negative (Negative) U Opiates 300ng/mL cut (Negative) Ur Oxycodone Screen (Negative) Urine Methadone Screen (Negative) Ur Barbiturates Screen (Negative) U Tricyclic Antidepress (Negative) Ur Phencyclidine Scrn (Negative) Ur Amphetamines Screen (Negative) U Methamphetamines Scrn (Negative) Ur MDMA Scrn (Ecstasy) (Negative) U Benzodiazepines Scrn (Negative) Urine Cocaine Screen (Negative) U Marijuana (THC) Screen (Negative) Chlamy pneumoniae PCR (Not Detect) Adenovirus (PCR) (Not Detect) B. pertussis DNA (PCR) (Not Detecte) B.parapertussis DNA PCR (Not Detecte) Coronavirus OC43 (PCR) (Not Detect) Coronavirus HKU1 (PCR) (Not Detect) Coronavirus 229E (PCR) (Not Detect) SARS-CoV-2 (PCR) (Negative) Coronavirus NL63 (PCR) (Not Detect) Human Metapneumovir PCR (Not Detect) Influenza Type A (PCR) (Not Detect) Influenza Type B (PCR) (Not Detect) M. pneumoniae (PCR) (Not Detect) Parainfluenza 1 (PCR) (Not Detect) Parainfluenza 2 (PCR) (Not Detect) Parainfluenza 3 (PCR) (Not Detect) Parainfluenza 4 (PCR) (Not Detect) RSV (PCR) (Not Detect) Entero/Rhino (PCR) (Not Detect) Discharge Plan Departure Patient Disposition: Home Clinical Impression: Left-sided weakness, Coronavirus infection Instructions: DI for Muscle Weakness Activity Restrictions/Additional Instructions: *You have been diagnosed with left-sided weakness, coronavirus infection *What to do: *Please continue to take your regular medications as directed. [ ] New medication prescriptions sent to your pharmacy: [ ] [ ] New medication written as a paper prescription [X] No new medications given You were evaluated in the emergency department today for left-sided weakness, nausea, and fever. Respiratory panel did show signs of coronavirus infection, not to be confused with the novel coronavirus infection that leads to COVID-19. Otherwise, lab studies and imaging obtained in the emergency department today did not show signs of significant acute abnormality. The next step in the process would be to obtain an MRI of the head, and I recommend that you follow- up with your primary care provider as soon as possible to schedule this exam. If you need access to a wheelchair I recommend visiting the [employer] as they often give wheelchairs away for free. Please do not hesitate to return to the emergency department if you experience loss of consciousness, weakness spreading to the right side of your body, speech difficulties, or any other concerning symptoms. *Please follow up with your primary care provider in 2-3 days, call for an appointment. Let them know you were seen in the Emergency Department and that we ask that you be seen in follow up. We will electronically transmit a record of today's note if your PCP is in our system *If you do not have a primary care provider please contact the [facility] Resource line at [phone]. They will ask some questions about your medical history and help get you set up with a doctor in the community. *Return to Emergency Department if you should have any new, worsening or concerning symptoms, such as fever greater than 101 F, shaking chills, worsening pain, persistent vomiting or other bothersome symptoms. Prescriptions: No Action methocarbamol 500 mg tablet See Rx Instructions PO Q6-8H PRN (Reason: muscle spasm) Qty: 30 0RF Rx Instructions: 1-2 tablets PO every 6-8 hours PRN; hydrocodone-acetaminophen 5-325 mg tablet 1 tab PO BID PRN (Reason: pain) Qty: 20 0RF mirtazapine 15 mg tablet 15 mg PO BEDTIME Qty: 30 3RF quetiapine 300 mg tablet extended release 24 hr 300 mg PO BEDTIME MDD 300 mg Qty: 30 3RF sertraline 100 mg tablet 200 mg PO DAILY 30 Days Qty: 60 3RF prazosin 1 mg capsule 2 mg PO BEDTIME MDD 2 mg Qty: 60 3RF albuterol sulfate [Ventolin HFA] 90 MCG/PUFF HFA aerosol inhaler 0 puff INH Q4HP PRN (Reason: Bronchospasm) ondansetron HCl [Zofran] 4 mg tablet 4 mg PO Q6H PRN (Reason: nausea and vomiting) Qty: 5 0RF Referrals: Yoly Chavez MD [Primary Care Provider] - Visit Report Forms: Patient Portal/API <Maricarmen Muñoz DO - Last Filed: 05/10/22 12:48> [facility] ED Attending Valeriature Attestation: I was immediately available in the department for consultation. Patient care was reviewed with myself. Patient has an atypical type presentation has had multiple evaluations in the past including neuro and stroke workup. There was concern for arterial occlusion although it exam was also atypical for this so arterial study was included was negative, additional workup was negative and patient elected to leave before the completion of entire workup.
--- NOTE | 2022-05-04 16:02 | DI.US.S_ITS ---
PROCEDURE: US ARTERIAL DUPLEX LE LT INDICATIONS: Loss of sensation left lower extremity TECHNIQUE: Color and pulse Doppler interrogation was performed of the left lower extremity arterial system, with image documentation. COMPARISON: None. FINDINGS: Common femoral artery: 172 cm/sec, with triphasic flow. Deep femoral artery: 143 cm/sec, with triphasic flow. Proximal superficial femoral artery: 126 cm/sec, with triphasic flow. Mid superficial femoral artery: 176 cm/sec, with triphasic flow. Distal superficial femoral artery: 135 cm/sec, with triphasic flow. Popliteal artery: 90 cm/sec, with triphasic flow. Posterior tibial artery: 44 cm/sec, with triphasic flow. Anterior tibial artery/dorsalis pedis: 44 cm/sec, with triphasic flow. Avila-scale imaging description: No visualized plaque. IMPRESSION: Normal exam. Dictated by: Gracie Charles M.D. on 05/04/2022 at 17:16 Approved by: Gracie Charles M.D. on 05/04/2022 at 17:18
--- NOTE | 2022-05-04 16:07 | DI.CT.S_ITS ---
PROCEDURE: CT STROKE INDICATIONS: Left footdrop, left-sided weakness TECHNIQUE: Noncontrast 4.5 mm thick angled axial sections acquired from the foramen magnum to the vertex, with coronal reformats. For radiation dose reduction, the following was used: automated exposure control, adjustment of mA and/or kV according to patient size. COMPARISON: [facility], CT, CT HEAD/BRAIN WO CON, 10/27/2021, 17:47. FINDINGS: Image quality: Excellent. CSF spaces: Basal cisterns are patent. No extra-axial fluid collections. Ventricles are normal in size and shape. Brain: No midline shift. No intracranial masses or hemorrhage. Avila-white matter interface is normal. Skull and face: Calvarium and visualized facial bones are intact, without suspicious lesions. Sinuses: Visualized sinuses and mastoids are clear. IMPRESSION: 1. No acute intracranial abnormalities. The result was discussed with the provider in [facility]. This study fulfills neurological imaging criteria for inclusion or exclusion of acute stroke therapies based on available published neurological imaging guidelines. Dictated by: Frandy Alexander M.D. on 05/04/2022 at 16:29 Approved by: Frandy Alexander M.D. on 05/04/2022 at 16:33
--- NOTE | 2022-05-04 16:08 | DI.CT.S_ITS ---
PROCEDURE: CT ANGIO HEAD AND NECK INDICATIONS: Left-sided weakness TECHNIQUE: After the administration of intravenous contrast, 1 mm thick sections acquired from the aortic arch through the [place]. Post-contrast 4.5 mm thick sections then re-acquired from the foramen magnum to the vertex. For radiation dose reduction, the following was used: automated exposure control, adjustment of mA and/or kV according to patient size. COMPARISON: [facility], CT, CT ANGIO HEAD AND NECK, 11/07/2021, 13:19. FINDINGS: Image quality: Excellent. HEAD CT ANGIOGRAPHY: Anterior circulation: Intracranial internal carotid arteries are normal in size and flow. The flow within the paired anterior cerebral arteries is normal and symmetric. The flow within the middle cerebral arteries is normal and symmetric. The anterior communicating artery is seen. No aneurysms are seen. Posterior circulation: Visualized portions of the vertebral arteries demonstrate normal caliber, and join to form a normal appearing basilar artery. Flow within the posterior cerebral arteries is normal and symmetric. No aneurysms are seen. NECK CT ANGIOGRAPHY: Carotid system: The great vessels demonstrate a conventional anatomy as they arise from the aortic arch. The origins of the common carotid arteries appear patent. The common carotid arteries demonstrate normal caliber and courses. The bifurcation regions are both widely patent. The internal carotid arteries demonstrate normal calibers and courses. Posterior circulation: The origins of the vertebral arteries both appear widely patent. The more superior extracranial portions of both vertebral arteries also demonstrate normal courses and calibers. They join to form a normal appearing basilar artery. Soft tissues: Visualized neck soft tissues demonstrate no suspicious abnormalities. Bones: No suspicious bony lesions. Visualized cervical spine appears normally aligned. IMPRESSION: 1. Unremarkable intracranial CT angiogram of the brain without large vessel occlusion, aneurysm or vascular malformation. 2. Normal CT angiogram of the neck. No evidence of stenosis. Any quantitative measurements of stenosis were performed using NASCET criteria. Approved by: Nikko Rivera M.D. on 05/04/2022 at 15:49
[2022-05-04 16:17] LABS: Adenovirus Not Detected (Not Detect); B. parapertussis Not Detected (Not Detecte); Bordetella pertussis Not Detected (Not Detecte); Chlamydophila pneumoniae Not Detected (Not Detect); Coronavirus 229E Not Detected (Not Detect); Coronavirus HKU1 Not Detected (Not Detect); Coronavirus NL 63 Not Detected (Not Detect); Coronavirus OC43 Detected (Not Detect); Human Metapneumovirus Not Detected (Not Detect); Human Rhinovirus/Enterovirus Not Detected (Not Detect); Influenza A Not Detected (Not Detect); Influenza B Not Detected (Not Detect); Mycoplasma pneumoniae Not Detected (Not Detect); Parainfluenza Virus 1 Not Detected (Not Detect); Parainfluenza Virus 2 Not Detected (Not Detect); Parainfluenza Virus 3 Not Detected (Not Detect); Parainfluenza Virus 4 Not Detected (Not Detect); Respiratory Syncytial Virus Not Detected (Not Detect); SARS- CoV-2 Not Detected (Not Detecte)
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
[2022-05-04 17:03] LABS: INR 1.2 (0.9-1.3); Prothrombin Time 13.4 SECONDS (10.1-12.7)
[2022-05-04 17:05] LABS: PTT Partial Thromboplastin Tim 41 SECONDS (26.4-36.2)
[2022-05-04 17:07] LABS: Creatine Kinase 213 U/L (30-135); Lactate (Lactic Acid) 0.9 mmol/L (0.7-2.1)
[2022-05-04 17:15] LABS: Ur Creatinine Normal (Normal); Ur Specific Gravity Normal (Normal); Urine Tetrahydrocannabinol Positive (Negative); Urine pH Normal (Normal)
[2022-05-04 17:16] LABS: UR Morphine/Opiate cutoff 300 Negative (Negative); Urine Amphetamines Negative (Negative); Urine Barbiturates Negative (Negative); Urine Benzodiazepines Negative (Negative); Urine Cocaine Negative (Negative); Urine MDMA Negative (Negative); Urine Methadone Negative (Negative); Urine Methamphetamines Negative (Negative); Urine Oxycodone Negative (Negative); Urine Phencyclidine Negative (Negative); Urine Tricyclic Antidepressant Positive (Negative)
[2022-05-04 17:19] LABS: Troponin I < 0.012 ng/mL (0.01-0.034)
[2022-05-04 17:23] LABS: CKMB % Relative Index 0.6 % (1.5-5.0); Creatine Kinase MB 1.19 ng/mL (<2.37)
[2022-05-04 17:25] LABS: Bilirubin Urine UA 1+ (NEGATIVE); Glucose Urine UA NEGATIVE (Negative); Ketones Urine UA 2+ (NEGATIVE); Leukocyte Esterase Urine UA TRACE (NEGATIVE); Nitrite Urine UA NEGATIVE (Negative); Occult Blood Urine UA 3+ (Negative); Protein Urine UA 2+ (Negative); Urobilinogen Urine UA 0.2 E.U./dL (0.2)
[2022-05-04 17:30] LABS: Pregnancy Test Urine Negative (Negative)
[2022-05-04 17:45] LABS: Appearance Urine UA CLOUDY; Color Urine UA RED; pH Urine UA 5.5 (4.5-8.0)
[2022-05-04 17:46] LABS: Ictotest Urine Negative (Negative)
[2022-05-04 17:47] LABS: Amorphous Sediment Urine 1+; Bacteria Urine Moderate (10-30); Culture Indicated Urine Cult Not Indicated; RBC Urine 10-30/HPF (0-5/HPF); Squamous Epithelial Cell Urine 10-30 /HPF (0-5/HPF); Transitional Epi Cells Urine 1-5/HPF (0-5/HPF); WBC Urine 5-10/HPF (0-5/HPF)
== END 2022-05-04 19:24 | disposition home or self-care (01) ==
PROVIDERS: Emergency Medicine; Emergency Provider Physician Assistant; PCP Family Medicine
DX: R53.1 Weakness (principal); B97.29 Other coronavirus as the cause of diseases classified elsewhere; Z20.822 Contact with and (suspected) exposure to COVID-19
CPT/HCPCS: 36415; 70450; 70496; 70498; 71045; 80053; 80305; 81001; 81025; 82550; 82553; 83605; 84484; 85025; 85610; 85730; 87633; 87635; 93926; 96360; 99284; C9803

== ENCOUNTER → 2022-06-15 09:34 | Outpatient (CLI) | payer OTHER, MEDICAID, SELFPAY ==
--- NOTE | 2022-06-15 09:35 | DI.MRI.S_ITS ---
PROCEDURE: MR HEAD/BRAIN WO/W CON INDICATIONS: eval LLE numbness/paralysis, LUE weakness TECHNIQUE: Noncontrast axial T1 spin echo, axial T2 fast spin echo, sagittal and axial FLAIR, coronal T2 fast spin echo, axial gradient echo, axial diffusion and ADC through the brain. After the administration of contrast, axial and coronal and sagittal 3D VIBE or T1 spin echo with fat saturation through the brain. COMPARISON: [facility], CT, CT ANGIO HEAD AND NECK, 05/04/2022, 16:21. [facility], CT, CT STROKE, 05/04/2022, 16:17. FINDINGS: Image quality: There is susceptibility artifact involving the eyelids, potentially related to mascara. CSF Spaces: Basal cisterns are patent. No extra-axial fluid collections. Ventricles are normal in size and shape. Brain: No midline shift. No intracranial bleeds or masses. No abnormal intracranial enhancement. The brainstem appears normal. Diffusion-weighted images demonstrate no acute ischemic insults. No chronic ischemic insults. Normal intravascular flow voids are present. Skull and face: Calvarial marrow is normal in signal. No significant orbital abnormality is seen, although evaluation of the orbits is limited by susceptibility artifact. Sinuses: Sinuses and mastoids appear clear. IMPRESSION: Unremarkable intracranial study, without a cause of the patient's left lower extremity symptoms identified. Dictated by: Juan Peterson M.D. on 06/15/2022 at 9:57 Approved by: Juan Peterson M.D. on 06/15/2022 at 9:59
== END ==
PROVIDERS: Family Provider Registered Nurse Diabetes Educator; PCP Registered Nurse Diabetes Educator; Referring Provider Registered Nurse Diabetes Educator; Visit Provider Registered Nurse Diabetes Educator
DX: G83.10 Monoplegia of lower limb affecting unspecified side (principal); R53.1 Weakness; R20.0 Anesthesia of skin
CPT/HCPCS: 70553; A9579

== ENCOUNTER 2022-06-25 10:09 | Outpatient (CLI) | payer OTHER, MEDICAID, SELFPAY | END 2022-06-29 10:01 | disposition home or self-care (01) | PROVIDERS: Family Provider Registered Nurse Diabetes Educator; PCP Registered Nurse Diabetes Educator; Referring Provider Registered Nurse Diabetes Educator; Visit Provider Registered Nurse Diabetes Educator | DX: R53.1 Weakness (principal); G83.14 Monoplegia of lower limb affecting left nondominant side; R20.0 Anesthesia of skin | CPT/HCPCS: 95886; 95911 ==

== ENCOUNTER → 2022-09-09 13:42 | Outpatient (CLI) | payer OTHER, MEDICAID, SELFPAY ==
[2022-09-09 14:57] LABS: HCG Quantitative /Beta subunit < 2.4 mIU/mL
== END ==
PROVIDERS: Family Provider Registered Nurse Diabetes Educator; PCP Registered Nurse Diabetes Educator; Referring Provider Obstetrics & Gynecology; Visit Provider Obstetrics & Gynecology
DX: N91.2 Amenorrhea, unspecified (principal)
CPT/HCPCS: 36415; 84702

== ENCOUNTER 2022-10-03 17:13 | Emergency (ER) | payer OTHER, MEDICAID, SELFPAY ==
[2022-10-03 17:41] VITALS: BP 114/67; PULSE 78; RESP 18; TEMP 37.4; O2SAT 98; BMI 18.0
== END 2022-10-03 18:28 | disposition left against medical advice (07) ==
PROVIDERS: Emergency Provider Emergency Medicine; Family Provider Registered Nurse Diabetes Educator; PCP Registered Nurse Diabetes Educator
DX: R31.9 Hematuria, unspecified (principal)
CPT/HCPCS: 81003; 81025; 99282

== ENCOUNTER 2023-02-13 18:12 | Emergency (ER) | payer OTHER, MEDICAID, SELFPAY ==
[2023-02-13 18:20] VITALS: BP 116/77; PULSE 102; RESP 16; TEMP 36.8; O2SAT 99; BMI 18.6
--- NOTE | 2023-02-13 18:20 | ED.GENADULT ---
HPI - General Adult General Stated complaint: Lymph nodes swelling, Ear pain Time Seen by Provider: 02/13/23 18:15 Related Data Home Medications Medication Instructions Recorded Confirmed albuterol sulfate 90 mcg/actuation 0 puff INH Q4HP PRN Bronchospasm 11/04/20 05/19/22 aerosol inhaler (Ventolin HFA) Previous Rx's Medication Instructions Recorded desogestrel-e.estradiol 0.15 1 tab PO DAILY contraception #84 05/19/22 mg-0.02 mg(21)/e.estrad 0.01 mg(5) tabs tablet (Kariva (28)) bupropion HCl 150 mg 24 hr tablet, 150 mg PO QAM Depression #30 tabs 09/14/22 extended release mirtazapine 30 mg tablet 45 mg PO BEDTIME Depression #45 09/14/22 tabs prazosin 1 mg capsule 2 mg PO BEDTIME Nightmares #60 caps 09/14/22 quetiapine 300 mg tablet,extended 300 mg PO BEDTIME Dissociation #30 09/14/22 release 24 hr tabs lamotrigine 25 mg tablet 50 mg PO DAILY Mood Stabilizer 30 02/11/23 days #30 tabs Allergies Allergy/AdvReac Type Severity Reaction Status Date / Time adhesive Allergy Intermediate burn type Verified 05/19/22 11:37 wound from where adhesive was ciprofloxacin [CIPROFLOXACIN] Allergy Intermediate Verified 05/19/22 11:37 cefuroxime [CEFUROXIME] Allergy Mild LAB TOLD Verified 05/19/22 11:37 HER SHE WAS ALLERGIC cephalexin [CEPHALEXIN] Allergy Mild LAB TOLD Verified 05/19/22 11:37 HER SHE WAS ALLERGIC Penicillins [PENICILLINS] Allergy Mild LAB TOLD Verified 05/19/22 11:37 HER SHE WAS ALLERGIC ranitidine [From ZANTAC] Allergy Unknown Verified 05/19/22 11:37 Sulfa (Sulfonamide Allergy Unknown FAMILY HX Verified 05/19/22 11:37 Antibiotics) OF SULFA [SULFA (SULFONAMIDE ALLERGY ANTIBIOTICS)] latex AdvReac Intermediate Rash, Verified 05/19/22 11:37 pain, hives Patient History Medical History (Updated 10/18/22 @ 00:01 by ) Anemia Anxiety and depression Bronchitis C. difficile colitis Cheilitis Colitis GI bleed Hemoptysis History of seizure Influenza Major depressive disorder, recurrent Monochorionic diamniotic twin gestation Nasal bone fracture (~03/2021) Recurrent abdominal pain Schizophrenia Twin gestation in second trimester Surgical History H/O colonoscopy H/O endoscopy History of delivery Status post appendectomy (10/2012) Family History Mother Nephrolithiasis Medullary sponge kidney Benign breast cyst in female Father Nephrolithiasis Grandfather Heart disease Diabetes mellitus Stroke Grandmother Heart disease Diabetes mellitus Stroke Family/Other Cancer Social History household members: spouse Smoking Status: Current every day smoker alcohol intake: current Smoking Status: Current every day smoker tobacco type: cigarettes alcohol intake frequency: holidays/special occasions only Substance Use Type: does not use Discharge Plan Departure Prescriptions: No Action mirtazapine 30 mg tablet 45 mg PO BEDTIME Qty: 45 3RF Hold Instructions: Home Medication placed on hold at Doctor's office prazosin 1 mg capsule 2 mg PO BEDTIME MDD 2 mg Qty: 60 3RF Hold Instructions: Home Medication placed on hold at Doctor's office quetiapine 300 mg tablet extended release 24 hr 300 mg PO BEDTIME MDD 300 mg Qty: 30 3RF Hold Instructions: Home Medication placed on hold at Doctor's office bupropion HCl 150 mg tablet extended release 24 hr 150 mg PO QAM Qty: 30 3RF Hold Instructions: Home Medication placed on hold at Doctor's office Rx Instructions: New Medication lamotrigine 25 mg tablet 50 mg PO DAILY 30 Days Qty: 30 1RF Rx Instructions: New Medication desog-e.estradiol/e.estradiol [Kariva (28)] 0.15-0.02 mgx21 /0.01 mg x 5 tablet 1 tab PO DAILY Qty: 84 4RF Rx Instructions: Take once daily. albuterol sulfate [Ventolin HFA] 90 MCG/PUFF HFA aerosol inhaler 0 puff INH Q4HP PRN (Reason: Bronchospasm) Referrals: Broderick Pierre ARNP [Primary Care Provider] -
--- NOTE | 2023-02-13 19:07 | ED.URI ---
HPI - URI/Sore Throat <Sonal Mansfield PA-C - Last Filed: 02/13/23 20:53> General Chief Complaint: Upper Respiratory Symptoms Stated Complaint: Lymph nodes swelling, Ear pain Time Seen by Provider: 02/13/23 18:15 Mode of arrival: Family Vehicle History of Present Illness HPI Narrative: Patient is a 22-year-old female presenting for evaluation of right-sided lymph node swelling and pain for the last 2 weeks. She notes that she was seen in emergency room in [place] 2 weeks ago for this. She says that she had negative strep and negative mono tests, was treated with azithromycin due to anaphylaxis PCN allergy. At that time, she notes that she had nausea and vomiting along with the throat pain. She says that her throat pain has continued to worsen despite azithromycin treatment. She says that she is not vomited because she is had Zofran to take. She says that in the last 2 weeks she is had regular chills and night sweats. She denies an objective febrile temperature. She reports that saline gargles have not helped, and the pain in her right throat has it radiates into her right ear. She says that when she turns her head to the left, she feels a pulling sensation in her right neck where the right lymph node is swollen. She also reports that after returning from [place] on the , she had stomach ?bubbling? which lasted 2-3 days without diarrhea or vomiting. She says she thinks this is a GI bug which her family also suffered from with nausea and vomiting. She says this has since resolved She also notes that she has swelling started in her left lymph node as well. She reports minor cough occasionally due to congestion down her throat. She reports her nasal congestion is mild. She denies any recent tooth infection, gum infection, or pain under her jaw. She reports pain with swallowing, but denies difficulty handling her secretions, and denies drooling. She reports the pain in her throat seems to be getting worse overall. Incidentally, she says that she regularly has an elevated heart rate, and heart rate is elevated in the emergency department today at 102. In the last year, she is noted history of ovarian cyst which ruptured leaving free fluid in her abdomen, and kidney stone which she is uncertain if it passed. Related Data Home Medications Medication Instructions Recorded Confirmed albuterol sulfate 90 mcg/actuation 0 puff INH Q4HP PRN Bronchospasm 11/04/20 05/19/22 aerosol inhaler (Ventolin HFA) Previous Rx's Medication Instructions Recorded desogestrel-e.estradiol 0.15 1 tab PO DAILY contraception #84 05/19/22 mg-0.02 mg(21)/e.estrad 0.01 mg(5) tabs tablet (Kariva (28)) bupropion HCl 150 mg 24 hr tablet, 150 mg PO QAM Depression #30 tabs 09/14/22 extended release mirtazapine 30 mg tablet 45 mg PO BEDTIME Depression #45 09/14/22 tabs prazosin 1 mg capsule 2 mg PO BEDTIME Nightmares #60 caps 09/14/22 quetiapine 300 mg tablet,extended 300 mg PO BEDTIME Dissociation #30 09/14/22 release 24 hr tabs lamotrigine 25 mg tablet 50 mg PO DAILY Mood Stabilizer 30 02/11/23 days #30 tabs hydrocodone 5 mg-acetaminophen 325 1 tab PO BID PRN pain #8 tabs 02/13/23 mg tablet naproxen 500 mg tablet 500 mg PO BID PRN pain #10 tabs 02/13/23 Allergies Allergy/AdvReac Type Severity Reaction Status Date / Time adhesive Allergy Intermediate burn type Verified 02/13/23 20:28 wound from where adhesive was ciprofloxacin [CIPROFLOXACIN] Allergy Intermediate Verified 02/13/23 20:28 cefuroxime [CEFUROXIME] Allergy Mild LAB TOLD Verified 02/13/23 20:28 HER SHE WAS ALLERGIC cephalexin [CEPHALEXIN] Allergy Mild LAB TOLD Verified 02/13/23 20:28 HER SHE WAS ALLERGIC Penicillins [PENICILLINS] Allergy Mild LAB TOLD Verified 02/13/23 20:28 HER SHE WAS ALLERGIC ranitidine [From ZANTAC] Allergy Unknown Verified 02/13/23 20:28 Sulfa (Sulfonamide Allergy Unknown FAMILY HX Verified 02/13/23 20:28 Antibiotics) OF SULFA [SULFA (SULFONAMIDE ALLERGY ANTIBIOTICS)] latex AdvReac Intermediate Rash, Verified 02/13/23 20:28 pain, hives Patient History <Sonal Mansfield PA-C - Last Filed: 02/13/23 20:53> Medical History Anemia Anxiety and depression Bronchitis C. difficile colitis Cheilitis Colitis GI bleed Hemoptysis History of seizure Influenza Major depressive disorder, recurrent Monochorionic diamniotic twin gestation Nasal bone fracture (~03/2021) Recurrent abdominal pain Schizophrenia Twin gestation in second trimester Surgical History H/O colonoscopy H/O endoscopy History of delivery Status post appendectomy (10/2012) Family History Mother Nephrolithiasis Medullary sponge kidney Benign breast cyst in female Father Nephrolithiasis Grandfather Heart disease Diabetes mellitus Stroke Grandmother Heart disease Diabetes mellitus Stroke Family/Other Cancer Social History household members: spouse Smoking Status: Current every day smoker alcohol intake: current Smoking Status: Current every day smoker tobacco type: cigarettes alcohol intake frequency: holidays/special occasions only Substance Use Type: does not use Exam <Sonal Mansfield PA-C - Last Filed: 02/13/23 20:53> Narrative Exam Narrative: GENERAL: 22 year old patient appears stated age. Well-developed patient, in no acute distress. HEAD: Atraumatic. Normocephalic. EYES: Pupils equal round and reactive. Extraocular motions intact. No scleral icterus. No injection or drainage. ENT: Nose without bleeding, purulent drainage. Throat without erythema, no tonsils present, no exudates present. No peritonsillar swelling. Uvula is midline. Airway patent. TMs pearly santiago with good COL, some fluid appears to be present behind them. Nontender to mastoid, tragus or pinna palpation. NECK: Trachea midline. Tender bilateral cervical lymphadenopathy. Right anterior lymph node is 3-4 cm long by palpation, soft and mobile. Left anterior lymph node feels swollen and tender as well, but right is worse than left. CARDIOVASCULAR: Regular rate and rhythm without murmurs, gallops, or rubs. RESPIRATORY: Clear to auscultation. Breath sounds equal bilaterally. No wheezes, rales, or rhonchi. NEURO: AOx3. SKIN: No rash or erythema of visible areas Initial Vital Signs Initial Vital Signs: Vital Signs Temperature 98.2 F 02/13/23 18:20 Pulse Rate 102 H 02/13/23 18:20 Respiratory Rate 16 02/13/23 18:20 Blood Pressure 116/77 02/13/23 18:20 Pulse Oximetry 99 02/13/23 18:20 Oxygen Delivery Method Room Air 02/13/23 18:20 <Sia Bell MD - Last Filed: 02/14/23 05:39> Initial Vital Signs Initial Vital Signs: Vital Signs Temperature 98.2 F 02/13/23 18:20 Pulse Rate 102 H 02/13/23 18:20 Respiratory Rate 16 02/13/23 18:20 Blood Pressure 116/77 02/13/23 18:20 Pulse Oximetry 99 02/13/23 18:20 Oxygen Delivery Method Room Air 02/13/23 18:20 Course <Sonal Mansfield PA-C - Last Filed: 02/13/23 20:53> Orders Ordered: Discontinued Medications Dexamethasone (Dexamethasone 10 Mg/Ml Vial) 10 mg IV NOW ONE Stop: 02/13/23 19:19 Last Admin: 02/13/23 19:42 Dose: 10 mg Documented By: DARÍO Sodium Chloride (Normal Saline 0.9%) 1,000 mls @ 1,000 mls/hr IV BOLUS ONE Stop: 02/13/23 20:13 Last Infusion: 02/13/23 20:49 Dose: 0 mls/hr Documented By: Admin: 02/13/23 19:44 Dose: 1,000 mls/hr Documented By: DARÍO Vital Signs Vital signs: Vital Signs - 8 hr 02/13/23 18:20 02/13/23 19:21 02/13/23 19:30 Temperature 98.2 F Pulse Rate 102 H 99 H 105 H Respiratory Rate 16 Blood Pressure 116/77 Pulse Oximetry 99 99 99 Oxygen Delivery Method Room Air 02/13/23 20:44 02/13/23 20:44 Temperature Pulse Rate 93 H Respiratory Rate Blood Pressure 122/77 Pulse Oximetry 100 Oxygen Delivery Method Room Air <Sia Bell MD - Last Filed: 02/14/23 05:39> Orders Ordered: Discontinued Medications Dexamethasone (Dexamethasone 10 Mg/Ml Vial) 10 mg IV NOW ONE Stop: 02/13/23 19:19 Last Admin: 02/13/23 19:42 Dose: 10 mg Documented By: DARÍO Sodium Chloride (Normal Saline 0.9%) 1,000 mls @ 1,000 mls/hr IV BOLUS ONE Stop: 02/13/23 20:13 Last Infusion: 02/13/23 20:49 Dose: 0 mls/hr Documented By: Admin: 02/13/23 19:44 Dose: 1,000 mls/hr Documented By: DARÍO Vital Signs Vital signs: Vital Signs - 8 hr 02/13/23 18:20 02/13/23 19:21 02/13/23 19:30 Temperature 98.2 F Pulse Rate 102 H 99 H 105 H Respiratory Rate 16 Blood Pressure 116/77 Pulse Oximetry 99 99 99 Oxygen Delivery Method Room Air 02/13/23 20:44 02/13/23 20:44 Temperature Pulse Rate 93 H Respiratory Rate Blood Pressure 122/77 Pulse Oximetry 100 Oxygen Delivery Method Room Air MDM - URI/Sore Throat <Sonal Mansfield PA-C - Last Filed: 02/13/23 20:53> Lab Data 02/13/23 19:35 02/13/23 19:35 Labs: Lab Results 02/13/23 02/13/23 02/13/23 Range/Units 19:20 19:20 19:35 WBC 11.6 H (4.5-11.0) X10^3/uL RBC 4.25 (4.0-5.2) X10^6/uL Hgb 12.3 (12.0-16.0) g/dL Hct 36.5 (36-46) % MCV 85.9 (80-100) fL MCH 28.9 (26-34) PG MCHC 33.7 (30-36) % RDW 12.5 (11.6-14.8) % Plt Count 383 (150-400) X10^3/uL Neut % (Auto) 63.4 (50-75) % Lymph % (Auto) 24.4 L (25-40) % [place] % (Auto) 10.1 (3-14) % Eos % (Auto) 1.6 L (2-4) % Baso % (Auto) 0.5 (0-2) % Neut # (Auto) 7400 H (8537-4482) /uL Lymph # (Auto) 2800 (8948-7623) /uL [place] # (Auto) 1200 H (0-900) /uL Eos # (Auto) 200 (0-450) /uL Baso # (Auto) 100 (0-100) /uL Sodium (137-145) mmol/L Potassium (3.4-5.1) mmol/L Chloride (98-107) mmol/L Carbon Dioxide (22-32) mmol/L BUN (7-17) mg/dL Creatinine (0.52-1.04) mg/dL Estimated GFR (>60) mL/min BUN/Creatinine Ratio (6-22) Glucose (70-100) mg/dL Calcium (8.4-10.2) mg/dL Total Bilirubin (0.2-1.3) mg/dL AST (14-36) IU/L ALT (<35) IU/L Alkaline Phosphatase (38-126) U/L Total Protein (6.3-8.2) g/dL Albumin (3.5-5.0) g/dL Globulin (1.7-4.1) g/dL Albumin/Globulin Ratio (1.0-2.8) Chlamy pneumoniae PCR Not detected (Not Detect) Adenovirus (PCR) Not detected (Not Detect) B. pertussis DNA (PCR) Not detected (Not Detecte) B.parapertussis DNA PCR Not detected (Not Detecte) Coronavirus OC43 (PCR) Not detected (Not Detect) Coronavirus HKU1 (PCR) Not detected (Not Detect) Coronavirus 229E (PCR) Not detected (Not Detect) SARS-CoV-2 (PCR) Not detected (Not Detecte) Coronavirus NL63 (PCR) Not detected (Not Detect) Human Metapneumovir PCR Not detected (Not Detect) Influenza Type A (PCR) Not detected (Not Detect) Influenza Type B (PCR) Not detected (Not Detect) M. pneumoniae (PCR) Not detected (Not Detect) Parainfluenza 1 (PCR) Not detected (Not Detect) Parainfluenza 2 (PCR) Not detected (Not Detect) Parainfluenza 3 (PCR) Not detected (Not Detect) Parainfluenza 4 (PCR) Not detected (Not Detect) RSV (PCR) Not detected (Not Detect) Entero/Rhino (PCR) Not detected (Not Detect) Group A Strep (PCR) Negative (Negative) 03/25/23 Range/Units 19:35 WBC (4.5-11.0) X10^3/uL RBC (4.0-5.2) X10^6/uL Hgb (12.0-16.0) g/dL Hct (36-46) % MCV (80-100) fL MCH (26-34) PG MCHC (30-36) % RDW (11.6-14.8) % Plt Count (150-400) X10^3/uL Neut % (Auto) (50-75) % Lymph % (Auto) (25-40) % [place] % (Auto) (3-14) % Eos % (Auto) (2-4) % Baso % (Auto) (0-2) % Neut # (Auto) (5117-6078) /uL Lymph # (Auto) (3731-5862) /uL [place] # (Auto) (0-900) /uL Eos # (Auto) (0-450) /uL Baso # (Auto) (0-100) /uL Sodium 139 (137-145) mmol/L Potassium 4.0 (3.4-5.1) mmol/L Chloride 101 (98-107) mmol/L Carbon Dioxide 30 (22-32) mmol/L BUN 7 (7-17) mg/dL Creatinine 0.71 (0.52-1.04) mg/dL Estimated GFR > 60 (>60) mL/min BUN/Creatinine Ratio 9.9 (6-22) Glucose 75 (70-100) mg/dL Calcium 9.3 (8.4-10.2) mg/dL Total Bilirubin 0.1 L (0.2-1.3) mg/dL AST 18 (14-36) IU/L ALT 17 (<35) IU/L Alkaline Phosphatase 55 (38-126) U/L Total Protein 7.6 (6.3-8.2) g/dL Albumin 4.3 (3.5-5.0) g/dL Globulin 3.3 (1.7-4.1) g/dL Albumin/Globulin Ratio 1.3 (1.0-2.8) Chlamy pneumoniae PCR (Not Detect) Adenovirus (PCR) (Not Detect) B. pertussis DNA (PCR) (Not Detecte) B.parapertussis DNA PCR (Not Detecte) Coronavirus OC43 (PCR) (Not Detect) Coronavirus HKU1 (PCR) (Not Detect) Coronavirus 229E (PCR) (Not Detect) SARS-CoV-2 (PCR) (Not Detecte) Coronavirus NL63 (PCR) (Not Detect) Human Metapneumovir PCR (Not Detect) Influenza Type A (PCR) (Not Detect) Influenza Type B (PCR) (Not Detect) M. pneumoniae (PCR) (Not Detect) Parainfluenza 1 (PCR) (Not Detect) Parainfluenza 2 (PCR) (Not Detect) Parainfluenza 3 (PCR) (Not Detect) Parainfluenza 4 (PCR) (Not Detect) RSV (PCR) (Not Detect) Entero/Rhino (PCR) (Not Detect) Group A Strep (PCR) (Negative) MDM Narrative Medical decision making narrative: CC: This is a new problem, uncertain diagnosis possible systemic effects. 22-year-old female with 2 week history of worsening right-sided throat pain radiating into her right ear. No history of dental infection. Previous workup at a different hospital showed negative strep, negative mono and negative throat culture. This was previously treated with azithromycin. Patient reports anaphylactic penicillin allergy. Complicating co-morbidities: Previous ruptured ovarian cyst this year, kidney stone diagnosed earlier this year without kidney complications Data collected from: patient Social determinants of health that may influence the patients condition: None noted Medical records reviewed: None related to recent throat discomfort Differential considered: Peritonsillar abscess, Tdo's angina, strep throat, upper respiratory infection, lymphoma Exam documented above, pertinent findings include: Enlarged anterior right-sided lymph node, midline uvula, no jaw tenderness, no bulging or erythematous TM present on exam. Lab Test results independently reviewed as above. Pertinent findings: Elevated white count Consultations: Discussed case with Dr. Henson, recommended CBC, CMP, steroid treatment, normal saline fluid and repeat throat culture and viral testing. Treatments: We have treated with 1L normal saline and 10 mg Decadron Re-evaluations: No improvement in throat pain. Discussion: Discussed case with Dr. Henson. Discussed with patient that viral panel came back negative. Group strep came back negative. We will have to call with throat culture results in a couple of days. Exam was not concerning for peritonsillar abscess as uvula was midline and there was no mass, the main finding was anterior right cervical enlarged lymph node and report of sore throat. We discussed that her white count was not elevated enough to indicate bacterial infection. She may have a few days of hydrocodone/APAP to control her pain as she is no longer taking quetiapine. I recommend continued follow up with her primary care physician as indicated below in discharge instructions for continued monitoring. Recommend supportive care and follow up if concerning symptoms develop such as unable to handle secretions or difficulty breathing or other concerning systemic symptoms. Disposition: see below, along with detailed discharge instructions that have been reviewed with patient as well as indications for ED re-evaluation and additional outpatient follow up <Sia Bell MD - Last Filed: 02/14/23 05:39> Lab Data Labs: Lab Results 02/13/23 02/13/23 02/13/23 Range/Units 19:20 19:20 19:35 WBC 11.6 H (4.5-11.0) X10^3/uL RBC 4.25 (4.0-5.2) X10^6/uL Hgb 12.3 (12.0-16.0) g/dL Hct 36.5 (36-46) % MCV 85.9 (80-100) fL MCH 28.9 (26-34) PG MCHC 33.7 (30-36) % RDW 12.5 (11.6-14.8) % Plt Count 383 (150-400) X10^3/uL Neut % (Auto) 63.4 (50-75) % Lymph % (Auto) 24.4 L (25-40) % [place] % (Auto) 10.1 (3-14) % Eos % (Auto) 1.6 L (2-4) % Baso % (Auto) 0.5 (0-2) % Neut # (Auto) 7400 H (8468-0430) /uL Lymph # (Auto) 2800 (7292-7801) /uL [place] # (Auto) 1200 H (0-900) /uL Eos # (Auto) 200 (0-450) /uL Baso # (Auto) 100 (0-100) /uL Sodium (137-145) mmol/L Potassium (3.4-5.1) mmol/L Chloride (98-107) mmol/L Carbon Dioxide (22-32) mmol/L BUN (7-17) mg/dL Creatinine (0.52-1.04) mg/dL Estimated GFR (>60) mL/min BUN/Creatinine Ratio (6-22) Glucose (70-100) mg/dL Calcium (8.4-10.2) mg/dL Total Bilirubin (0.2-1.3) mg/dL AST (14-36) IU/L ALT (<35) IU/L Alkaline Phosphatase (38-126) U/L Total Protein (6.3-8.2) g/dL Albumin (3.5-5.0) g/dL Globulin (1.7-4.1) g/dL Albumin/Globulin Ratio (1.0-2.8) Chlamy pneumoniae PCR Not detected (Not Detect) Adenovirus (PCR) Not detected (Not Detect) B. pertussis DNA (PCR) Not detected (Not Detecte) B.parapertussis DNA PCR Not detected (Not Detecte) Coronavirus OC43 (PCR) Not detected (Not Detect) Coronavirus HKU1 (PCR) Not detected (Not Detect) Coronavirus 229E (PCR) Not detected (Not Detect) SARS-CoV-2 (PCR) Not detected (Not Detecte) Coronavirus NL63 (PCR) Not detected (Not Detect) Human Metapneumovir PCR Not detected (Not Detect) Influenza Type A (PCR) Not detected (Not Detect) Influenza Type B (PCR) Not detected (Not Detect) M. pneumoniae (PCR) Not detected (Not Detect) Parainfluenza 1 (PCR) Not detected (Not Detect) Parainfluenza 2 (PCR) Not detected (Not Detect) Parainfluenza 3 (PCR) Not detected (Not Detect) Parainfluenza 4 (PCR) Not detected (Not Detect) RSV (PCR) Not detected (Not Detect) Entero/Rhino (PCR) Not detected (Not Detect) Group A Strep (PCR) Negative (Negative) 02/13/23 Range/Units 19:35 WBC (4.5-11.0) X10^3/uL RBC (4.0-5.2) X10^6/uL Hgb (12.0-16.0) g/dL Hct (36-46) % MCV (80-100) fL MCH (26-34) PG MCHC (30-36) % RDW (11.6-14.8) % Plt Count (150-400) X10^3/uL Neut % (Auto) (50-75) % Lymph % (Auto) (25-40) % [place] % (Auto) (3-14) % Eos % (Auto) (2-4) % Baso % (Auto) (0-2) % Neut # (Auto) (2236-6704) /uL Lymph # (Auto) (7886-6586) /uL [place] # (Auto) (0-900) /uL Eos # (Auto) (0-450) /uL Baso # (Auto) (0-100) /uL Sodium 139 (137-145) mmol/L Potassium 4.0 (3.4-5.1) mmol/L Chloride 101 (98-107) mmol/L Carbon Dioxide 30 (22-32) mmol/L BUN 7 (7-17) mg/dL Creatinine 0.71 (0.52-1.04) mg/dL Estimated GFR > 60 (>60) mL/min BUN/Creatinine Ratio 9.9 (6-22) Glucose 75 (70-100) mg/dL Calcium 9.3 (8.4-10.2) mg/dL Total Bilirubin 0.1 L (0.2-1.3) mg/dL AST 18 (14-36) IU/L ALT 17 (<35) IU/L Alkaline Phosphatase 55 (38-126) U/L Total Protein 7.6 (6.3-8.2) g/dL Albumin 4.3 (3.5-5.0) g/dL Globulin 3.3 (1.7-4.1) g/dL Albumin/Globulin Ratio 1.3 (1.0-2.8) Chlamy pneumoniae PCR (Not Detect) Adenovirus (PCR) (Not Detect) B. pertussis DNA (PCR) (Not Detecte) B.parapertussis DNA PCR (Not Detecte) Coronavirus OC43 (PCR) (Not Detect) Coronavirus HKU1 (PCR) (Not Detect) Coronavirus 229E (PCR) (Not Detect) SARS-CoV-2 (PCR) (Not Detecte) Coronavirus NL63 (PCR) (Not Detect) Human Metapneumovir PCR (Not Detect) Influenza Type A (PCR) (Not Detect) Influenza Type B (PCR) (Not Detect) M. pneumoniae (PCR) (Not Detect) Parainfluenza 1 (PCR) (Not Detect) Parainfluenza 2 (PCR) (Not Detect) Parainfluenza 3 (PCR) (Not Detect) Parainfluenza 4 (PCR) (Not Detect) RSV (PCR) (Not Detect) Entero/Rhino (PCR) (Not Detect) Group A Strep (PCR) (Negative) Discharge Plan Departure Patient Disposition: Home Clinical Impression: Pharyngitis Instructions: Sore Throat Activity Restrictions/Additional Instructions: We discussed that your symptoms are due to an inflammation of the throat of uncertain cause. Your blood work did not show a concerning elevated white count indicating infection, strep screen was negative, viral panel was negative. We did take a throat culture which we will call you about concerning results and treat accordingly if needed. Continue to treat at home supportively with Tylenol as needed. I will prescribe her hydrocodone for your pain as you is no longer taking quetiapine. We discussed this can cause constipation so I recommend you take a stool softener. I do recommend that you continue follow up with your primary care provider to monitor the cause of your continued pain in light of our negative workup. Prescriptions: New naproxen 500 mg tablet 500 mg PO BID PRN (Reason: pain) Qty: 10 0RF hydrocodone-acetaminophen 5-325 mg tablet 1 tab PO BID PRN (Reason: pain) Qty: 8 0RF No Action mirtazapine 30 mg tablet 45 mg PO BEDTIME Qty: 45 3RF Hold Instructions: Home Medication placed on hold at Doctor's office prazosin 1 mg capsule 2 mg PO BEDTIME MDD 2 mg Qty: 60 3RF Hold Instructions: Home Medication placed on hold at Doctor's office quetiapine 300 mg tablet extended release 24 hr 300 mg PO BEDTIME MDD 300 mg Qty: 30 3RF Hold Instructions: Home Medication placed on hold at Doctor's office bupropion HCl 150 mg tablet extended release 24 hr 150 mg PO QAM Qty: 30 3RF Hold Instructions: Home Medication placed on hold at Doctor's office Rx Instructions: New Medication lamotrigine 25 mg tablet 50 mg PO DAILY 30 Days Qty: 30 1RF Rx Instructions: New Medication desog-e.estradiol/e.estradiol [Kariva (28)] 0.15-0.02 mgx21 /0.01 mg x 5 tablet 1 tab PO DAILY Qty: 84 4RF Rx Instructions: Take once daily. albuterol sulfate [Ventolin HFA] 90 MCG/PUFF HFA aerosol inhaler 0 puff INH Q4HP PRN (Reason: Bronchospasm) Referrals: Broderick Pierre ARNP [Primary Care Provider] - Stand Alone Forms: Patient Portal/API <Sia Bell MD - Last Filed: 02/14/23 05:39> Cosign ED Attending Cosignature Attestation: I was immediately available in the department for consultation throughout this patient's visit. Sia Bell MD
[2023-02-13 19:21] VITALS: PULSE 99; O2SAT 99
[2023-02-13 19:30] VITALS: PULSE 105; O2SAT 99
[2023-02-13] MEDS: DEXAMETHASONE 10 MG/ML VIAL IV (19:42)
[2023-02-13 19:43] LABS: Strep Grp A by PCR Rapid Negative (Negative)
[2023-02-13] MEDS: SODIUM CHLORIDE 0.9% 1,000 ML 1000 ML IV (19:44)
[2023-02-13 19:48] LABS: Add Manual Diff / Slide Review NO; Basophils Absolute Auto 100 /uL (0-100); Basophils Percent Auto 0.5 % (0-2); Eosinophils Absolute Auto 200 /uL (0-450); Eosinophils Percent Auto 1.6 % (2-4); Hematocrit 36.5 % (36-46); Hemoglobin 12.3 g/dL (12.0-16.0); Lymphocytes Absolute Auto 2800 /uL (1100-4500); Lymphocytes Percent Auto 24.4 % (25-40); Mean Corpuscular HGB Conc 33.7 % (30-36); Mean Corpuscular Hemoglobin 28.9 PG (26-34); Mean Corpuscular Volume 85.9 fL (80-100); Monocytes Absolute Auto 1200 /uL (0-900); Monocytes Percent Auto 10.1 % (3-14); Neutrophils Absolute Auto 7400 /uL (1500-7000); Neutrophils Percent Auto 63.4 % (50-75); Platelet Count 383 X10^3/uL (150-400); Red Blood Cell Count 4.25 X10^6/uL (4.0-5.2); Red Cell Distribution Width 12.5 % (11.6-14.8); White Blood Cell Count 11.6 X10^3/uL (4.5-11.0)
[2023-02-13 19:54] LABS: Alanine Aminotransferase 17 IU/L (<35); Albumin 4.3 g/dL (3.5-5.0); Albumin Globulin Ratio 1.3 (1.0-2.8); Alkaline Phosphatase 55 U/L (38-126); Aspartate Aminotransferase 18 IU/L (14-36); BUN Creatinine Ratio 9.9 (6-22); Bilirubin Total 0.1 mg/dL (0.2-1.3); Blood Urea Nitrogen 7 mg/dL (7-17); Calcium 9.3 mg/dL (8.4-10.2); Carbon Dioxide 30 mmol/L (22-32); Chloride 101 mmol/L (98-107); Estimated Glomerular Filt Rate > 60 mL/min (>60); Globulin 3.3 g/dL (1.7-4.1); Glucose 75 mg/dL (70-100); HEMOLYSIS < 15 (0-50); Sodium 139 mmol/L (137-145); Total Protein 7.6 g/dL (6.3-8.2)
[2023-02-13 20:18] LABS: Adenovirus Not Detected (Not Detect); B. parapertussis Not Detected (Not Detecte); Bordetella pertussis Not Detected (Not Detecte); Chlamydophila pneumoniae Not Detected (Not Detect); Coronavirus 229E Not Detected (Not Detect); Coronavirus HKU1 Not Detected (Not Detect); Coronavirus NL 63 Not Detected (Not Detect); Coronavirus OC43 Not Detected (Not Detect); Human Metapneumovirus Not Detected (Not Detect); Human Rhinovirus/Enterovirus Not Detected (Not Detect); Influenza A Not Detected (Not Detect); Influenza B Not Detected (Not Detect); Mycoplasma pneumoniae Not Detected (Not Detect); Parainfluenza Virus 1 Not Detected (Not Detect); Parainfluenza Virus 2 Not Detected (Not Detect); Parainfluenza Virus 3 Not Detected (Not Detect); Parainfluenza Virus 4 Not Detected (Not Detect); Respiratory Syncytial Virus Not Detected (Not Detect); SARS- CoV-2 Not Detected (Not Detecte)
[2023-02-13 20:44] VITALS: BP 122/77; PULSE 93; O2SAT 100
== END 2023-02-13 20:55 | disposition home or self-care (01) ==
PROVIDERS: Emergency Provider Physician Assistant; Family Provider Registered Nurse Diabetes Educator; PCP Registered Nurse Diabetes Educator
DX: J02.9 Acute pharyngitis, unspecified (principal); H92.01 Otalgia, right ear; Z20.822 Contact with and (suspected) exposure to COVID-19
CPT/HCPCS: 36415; 80053; 85025; 87070; 87633; 87651; 96361; 96374; 99284; J1100

== ENCOUNTER → 2023-02-17 13:30 | Outpatient (CLI) | payer OTHER, MEDICAID, SELFPAY ==
[2023-02-17 13:44] LABS: Appearance Urine UA CLEAR; Bilirubin Urine UA NEGATIVE (NEGATIVE); Color Urine UA YELLOW; Glucose Urine UA NEGATIVE (Negative); Ketones Urine UA NEGATIVE (NEGATIVE); Leukocyte Esterase Urine UA NEGATIVE (NEGATIVE); Nitrite Urine UA NEGATIVE (Negative); Occult Blood Urine UA NEGATIVE (Negative); Protein Urine UA NEGATIVE (Negative); Specific Gravity Urine UA 1.015 (1.000-1.035); Urobilinogen Urine UA 0.2 E.U./dL (0.2)
[2023-02-17 13:53] LABS: Add Manual Diff / Slide Review NO; Basophils Absolute Auto 100 /uL (0-100); Basophils Percent Auto 0.5 % (0-2); Eosinophils Absolute Auto 100 /uL (0-450); Hematocrit 42.8 % (36-46); Hemoglobin 14.4 g/dL (12.0-16.0); Lymphocytes Absolute Auto 2100 /uL (1100-4500); Lymphocytes Percent Auto 18.6 % (25-40); Mean Corpuscular HGB Conc 33.7 % (30-36); Mean Corpuscular Volume 86.1 fL (80-100); Monocytes Absolute Auto 800 /uL (0-900); Monocytes Percent Auto 7.3 % (3-14); Neutrophils Absolute Auto 8200 /uL (1500-7000); Neutrophils Percent Auto 72.6 % (50-75); Platelet Count 435 X10^3/uL (150-400); Red Blood Cell Count 4.97 X10^6/uL (4.0-5.2); Red Cell Distribution Width 12.9 % (11.6-14.8); White Blood Cell Count 11.3 X10^3/uL (4.5-11.0)
[2023-02-17 14:01] LABS: Bacteria Urine None Seen; Culture Indicated Urine Cult Not Indicated; RBC Urine None Seen (0-5/HPF); Squamous Epithelial Cell Urine 0-1 /HPF (0-5/HPF); WBC Urine None Seen (0-5/HPF)
[2023-02-17 14:08] LABS: Alanine Aminotransferase 41 IU/L (<35); Albumin 5.1 g/dL (3.5-5.0); Albumin Globulin Ratio 1.2 (1.0-2.8); Alkaline Phosphatase 76 U/L (38-126); Aspartate Aminotransferase 41 IU/L (14-36); BUN Creatinine Ratio 10.9 (6-22); Bilirubin Total 0.2 mg/dL (0.2-1.3); Blood Urea Nitrogen 6 mg/dL (7-17); C-Reactive Protein Quant 0.7 mg/dL (<1.0); Calcium 10.2 mg/dL (8.4-10.2); Carbon Dioxide 31 mmol/L (22-32); Chloride 98 mmol/L (98-107); Estimated Glomerular Filt Rate > 60 mL/min (>60); Globulin 4.4 g/dL (1.7-4.1); Glucose 97 mg/dL (70-100); HEMOLYSIS < 15 (0-50); Potassium 4.3 mmol/L (3.4-5.1); Sodium 137 mmol/L (137-145); Total Protein 9.5 g/dL (6.3-8.2)
[2023-02-18 16:20] LABS: HIV 1 & 2 Ab/Ag 4th Gen Combo NEGATIVE (NEGATIVE)
[2023-02-20 16:54] LABS: QuantiFERON Mitogen Value >10.00 IU/mL (.); QuantiFERON TB Gold Plus Negative (Negative); QuantiFERON TB1 Ag Value 0.12 IU/mL (.); QuantiFERON TB2 Ag Value 0.09 IU/mL (.)
== END ==
PROVIDERS: Family Provider Registered Nurse Diabetes Educator; PCP Registered Nurse Diabetes Educator; Referring Provider Registered Nurse Diabetes Educator; Visit Provider Registered Nurse Diabetes Educator
DX: R61 Generalized hyperhidrosis (principal)
CPT/HCPCS: 36415; 80053; 81001; 84443; 85025; 86140; 86480; 87040; 87389

== ENCOUNTER 2023-02-19 14:33 | Emergency (ER) | payer OTHER, MEDICAID, SELFPAY ==
[2023-02-19 15:01] VITALS: BP 108/73; PULSE 117; RESP 17; TEMP 37; O2SAT 98; BMI 19.3
== END 2023-02-19 16:30 | disposition left against medical advice (07) ==
PROVIDERS: Emergency Provider Emergency Medicine; Family Provider Registered Nurse Diabetes Educator; PCP Registered Nurse Diabetes Educator
CPT/HCPCS: 99281

== ENCOUNTER → 2023-02-24 12:02 | Outpatient (CLI) | payer OTHER, MEDICAID, SELFPAY ==
[2023-02-24 12:49] LABS: Add Manual Diff / Slide Review NO; Basophils Absolute Auto 0 /uL (0-100); Basophils Percent Auto 0.4 % (0-2); Eosinophils Absolute Auto 0 /uL (0-450); Eosinophils Percent Auto 0.7 % (2-4); Hematocrit 38.7 % (36-46); Hemoglobin 12.9 g/dL (12.0-16.0); Lymphocytes Absolute Auto 2300 /uL (1100-4500); Lymphocytes Percent Auto 34.3 % (25-40); Mean Corpuscular HGB Conc 33.4 % (30-36); Mean Corpuscular Volume 86.8 fL (80-100); Monocytes Absolute Auto 700 /uL (0-900); Monocytes Percent Auto 11.2 % (3-14); Neutrophils Absolute Auto 3500 /uL (1500-7000); Neutrophils Percent Auto 53.4 % (50-75); Platelet Count 389 X10^3/uL (150-400); Red Blood Cell Count 4.46 X10^6/uL (4.0-5.2); Red Cell Distribution Width 12.8 % (11.6-14.8); White Blood Cell Count 6.6 X10^3/uL (4.5-11.0)
[2023-02-24 13:52] LABS: Alanine Aminotransferase 25 IU/L (<35); Albumin 4.6 g/dL (3.5-5.0); Albumin Globulin Ratio 1.4 (1.0-2.8); Alkaline Phosphatase 57 U/L (38-126); Aspartate Aminotransferase 23 IU/L (14-36); Bilirubin Total 0.6 mg/dL (0.2-1.3); Blood Urea Nitrogen 12 mg/dL (7-17); Calcium 9.6 mg/dL (8.4-10.2); Carbon Dioxide 27 mmol/L (22-32); Chloride 100 mmol/L (98-107); Estimated Glomerular Filt Rate > 60 mL/min (>60); Globulin 3.3 g/dL (1.7-4.1); Glucose 84 mg/dL (70-100); HEMOLYSIS < 15 (0-50); Potassium 3.9 mmol/L (3.4-5.1); Sodium 138 mmol/L (137-145); Total Protein 7.9 g/dL (6.3-8.2)
--- NOTE | 2023-02-24 15:46 | DI.US.S_ITS ---
PROCEDURE: US SOFT TISSUE HEAD AND NECK INDICATIONS: PROMINENT BILATERAL CERVICAL CHAIN NODES TECHNIQUE: Real-time scanning was performed of the neck region of interest, with image documentation. COMPARISON: CT, CT ANGIO HEAD AND NECK, 05/04/2022, 16:21. FINDINGS: Ultrasound was performed in the areas of palpable abnormalities. There is a 3.7 x 1.0 x 5.2 cm right upper cervical lymph node. 2 lymph nodes are identified in left upper neck measuring 3.1 x 1.0 x 2.2 cm and 3.0 x 0.8 x 1.7 cm. The lymph nodes demonstrate abnormal morphology without fatty sofie. IMPRESSION: Bilateral cervical lymphadenopathy. This finding is nonspecific and may be secondary to infectious, inflammatory or neoplastic etiology. In a young patient, reactive lymphadenopathy is more common than neoplasm. Recommend clinical correlation and follow up. Dictated by: Frandy Alexander M.D. on 02/24/2023 at 16:52 Approved by: Frandy Alexander M.D. on 02/24/2023 at 17:02
[2023-02-26 17:08] LABS: Free Kappa Lt Chains, Serum 17.7 mg/L (3.3-19.4); Free Lambda Lt Chains,Serum 9.5 mg/L (5.7-26.3)
[2023-02-27 10:19] LABS: IGA 118 mg/dL (87-352); IGG 1246 mg/dL (586-1602); IGM 100 mg/dL (26-217)
[2023-03-02 14:36] LABS: Albumin 3.8 g/dL (2.9-4.4); Alpha-1-Globulin 0.3 g/dL (0.0-0.4); Alpha-2-Globulin 0.9 g/dL (0.4-1.0); Gamma Globulin 1.4 g/dL (0.4-1.8); Globulin Total 3.8 g/dL (2.2-3.9); Protein, Total 7.6 g/dL (6.0-8.5)
== END ==
PROVIDERS: Family Provider Registered Nurse Diabetes Educator; PCP Registered Nurse Diabetes Educator; Referring Provider Registered Nurse Diabetes Educator; Visit Provider Registered Nurse Diabetes Educator
DX: I88.9 Nonspecific lymphadenitis, unspecified (principal); R59.0 Localized enlarged lymph nodes; D72.9 Disorder of white blood cells, unspecified; R74.8 Abnormal levels of other serum enzymes; R77.9 Abnormality of plasma protein, unspecified; R79.89 Other specified abnormal findings of blood chemistry
CPT/HCPCS: 36415; 76536; 80053; 82784; 83883; 84155; 84165; 85025

== ENCOUNTER 2023-09-14 23:41 | Emergency (ER) | payer OTHER, MEDICAID, SELFPAY ==
--- NOTE | 2023-09-14 23:49 | ED.GENADULT ---
HPI - General Adult General Chief complaint: Abdominal Pain Stated complaint: abd pain 15 weeks Time Seen by Provider: 09/14/23 23:48 History of Present Illness HPI narrative: 22-year-old female is a at 15 weeks with prior twin delivery at 33 weeks in [place] due to preeclampsia presents with a chief complaint of lower abdominal cramping over the course of the evening. She denies fever or chills. She is not dizzy nor weak or lightheaded and denies chest pain or shortness of breath. She denies dysuria, frequency or urgency. She denies vaginal bleeding or leakage of fluid. She had previously lived in the area but for the past 4 years was living in [facility] and just flew in today. Her last ultrasound is reported to have been normal and was at 13 weeks. She denies any trauma or injury. She has a strong appetite and has had no trouble eating or drinking. Her pain is relatively constant and seems to be worse when she moves and improves with rest Related Data Home Medications Medication Instructions Recorded Confirmed albuterol sulfate 90 mcg/actuation 0 puff INH Q4HP PRN Bronchospasm 11/04/20 02/19/23 aerosol inhaler (Ventolin HFA) ondansetron 4 mg disintegrating 4 mg PO 02/16/23 02/16/23 tablet Previous Rx's Medication Instructions Recorded desogestrel-e.estradiol 0.15 1 tab PO DAILY contraception #84 05/19/22 mg-0.02 mg(21)/e.estrad 0.01 mg(5) tabs tablet (Kariva (28)) lamotrigine 25 mg tablet 50 mg (2 x 25 mg) PO DAILY Mood 02/11/23 Stabilizer 30 days #30 tabs naproxen 500 mg tablet 500 mg PO BID PRN pain #10 tabs 02/13/23 Allergies Allergy/AdvReac Type Severity Reaction Status Date / Time adhesive Allergy Intermediate burn type Verified 02/19/23 15:04 wound from where adhesive was ciprofloxacin [CIPROFLOXACIN] Allergy Intermediate Verified 02/19/23 15:04 cefuroxime [CEFUROXIME] Allergy Mild LAB TOLD Verified 02/19/23 15:04 HER SHE WAS ALLERGIC cephalexin [CEPHALEXIN] Allergy Mild LAB TOLD Verified 02/19/23 15:04 HER SHE WAS ALLERGIC Penicillins [PENICILLINS] Allergy Mild LAB TOLD Verified 02/19/23 15:04 HER SHE WAS ALLERGIC ranitidine [From ZANTAC] Allergy Unknown Verified 02/19/23 15:04 Sulfa (Sulfonamide Allergy Unknown FAMILY HX Verified 02/19/23 15:04 Antibiotics) OF SULFA [SULFA (SULFONAMIDE ALLERGY ANTIBIOTICS)] latex AdvReac Intermediate Rash, Verified 02/19/23 15:04 pain, hives Review of Systems Review of Systems Narrative: GENERAL: Denies chills, fatigue, malaise, fever, sweats. HEENT: Denies sinus pain, ear pain, sore throat, difficulty swallowing, dizziness. RESPIRATORY: Denies dyspnea, cough, wheezing, hemoptysis, sputum. CARDIOVASCULAR: Denies chest pain, palpitations, orthopnea, edema, GASTROINTESTINAL: See HPI : Denies dysuria, frequency, incontinence, hematuria, urinary retention. MUSCULOSKELETAL: denies weakness, joint pain, or bony pain SKIN: Denies rash, skin lesions, or other NEUROLOGIC: Denies weakness, headache, numbness, change in speech, confusion, seizures, incoordination. PSYCHIATRIC: No concerning psychosocial issues. 12 point review of systems is negative except for those stated above Patient History Medical History Nasal bone fracture (~03/2021) GI bleed Colitis Cheilitis Major depressive disorder, recurrent Monochorionic diamniotic twin gestation Twin gestation in second trimester History of seizure Recurrent abdominal pain C. difficile colitis Anxiety and depression Schizophrenia Anemia Influenza Hemoptysis Bronchitis Surgical History History of delivery H/O colonoscopy H/O endoscopy Status post appendectomy (10/2012) Family History Mother Nephrolithiasis Medullary sponge kidney Benign breast cyst in female Father Nephrolithiasis Grandfather Heart disease Diabetes mellitus Stroke Grandmother Heart disease Diabetes mellitus Stroke Family/Other Cancer Social History household members: spouse Smoking Status: Former smoker alcohol intake: current Smoking Status: Current every day smoker tobacco type: cigarettes alcohol intake frequency: holidays/special occasions only Substance Use Type: does not use Exam Narrative Exam Narrative: GENERAL: [22] year old patient appears stated age. Well-developed patient, in mild distress. HEAD: Atraumatic. Normocephalic. EYES: Pupils equal round and reactive. Extraocular motions intact. No scleral icterus. No injection or drainage. ENT: Nose without bleeding, purulent drainage. Throat without erythema, tonsillar hypertrophy or exudate. Airway patent. NECK: Trachea midline. Non tender CARDIOVASCULAR: Regular rate and rhythm without murmurs, gallops, or rubs. RESPIRATORY: Clear to auscultation. Breath sounds equal bilaterally. No wheezes, rales, or rhonchi. GASTROINTESTINAL: Abdomen soft, gravid below umbilicus, nondistended. EXTREMITIES: No edema or joint tenderness. BACK: Nontender without deformity or crepitance. No flank tenderness. NEURO: AOx3. SKIN: No rash or erythema of visible areas Initial Vital Signs Initial Vital Signs: Vital Signs Temperature 98.8 F 09/14/23 23:51 Pulse Rate 100 H 09/14/23 23:51 Respiratory Rate 16 09/14/23 23:51 Blood Pressure 114/65 09/14/23 23:51 Pulse Oximetry 98 09/14/23 23:51 Oxygen Delivery Method Room Air 09/14/23 23:51 Course Orders Ordered: ED Orders 09/15/23 00:00 US OB >= 14 weeks Fetus Stat 09/15/23 00:20 Complete Blood Count AUTO DIFF Stat Comprehensive Metabolic Panel Stat HCG Quantitative /Beta subunit Stat Vital Signs Vital signs: Vital Signs - 8 hr 09/14/23 23:51 Temperature 98.8 F Pulse Rate 100 H Respiratory Rate 16 Blood Pressure 114/65 Pulse Oximetry 98 Oxygen Delivery Method Room Air Medical Decision Making Lab Data 09/15/23 00:20 09/15/23 00:20 Labs: Lab Results 09/15/23 Range/Units 00:20 WBC 10.8 (4.5-11.0) X10^3/uL RBC 4.00 (4.0-5.2) X10^6/uL Hgb 11.8 L (12.0-16.0) g/dL Hct 34.5 L (36-46) % MCV 86.4 (80-100) fL MCH 29.5 (26-34) PG MCHC 34.2 (30-36) % RDW 12.8 (11.6-14.8) % Plt Count 276 (150-400) X10^3/uL Neut % (Auto) 66.6 (50-75) % Lymph % (Auto) 24.1 L (25-40) % [place] % (Auto) 8.0 (3-14) % Eos % (Auto) 1.0 L (2-4) % Baso % (Auto) 0.3 (0-2) % Neut # (Auto) 7200 H (6906-2625) /uL Lymph # (Auto) 2600 (2489-2326) /uL [place] # (Auto) 900 (0-900) /uL Eos # (Auto) 100 (0-450) /uL Baso # (Auto) 0 (0-100) /uL Sodium 134 L (137-145) mmol/L Potassium 3.8 (3.4-5.1) mmol/L Chloride 100 (98-107) mmol/L Carbon Dioxide 24 (22-32) mmol/L BUN 5 L (7-17) mg/dL Creatinine 0.42 L (0.52-1.04) mg/dL Estimated GFR > 60 (>60) mL/min BUN/Creatinine Ratio 11.9 (6-22) Glucose 89 (70-100) mg/dL Calcium 9.3 (8.4-10.2) mg/dL Total Bilirubin 0.3 (0.2-1.3) mg/dL AST 24 (14-36) IU/L ALT 11 (<35) IU/L Alkaline Phosphatase 37 L (38-126) U/L Total Protein 7.4 (6.3-8.2) g/dL Albumin 4.2 (3.5-5.0) g/dL Globulin 3.2 (1.7-4.1) g/dL Albumin/Globulin Ratio 1.3 (1.0-2.8) HCG, Quant 16105 mIU/mL Urine Dip Bedside Urine Glucose Negative Bedside Urine Bilirubin - Negative Bedside Urine Ketone - Negative Urine Specific Taylor 1.015 Bedside Urine Occult Blood - Negative Bedside Urine pH 6.0 Bedside Urine Protein - Negative Bedside Urine Urobilinogen - Negative Bedside Urine Nitrite - Negative Bedside Urine Leukocytes - Negative Esterase Point of care testing: Urine Dip Bedside Urine Glucose Negative Bedside Urine Bilirubin - Negative Bedside Urine Ketone - Negative Urine Specific Taylor 1.015 Bedside Urine Occult Blood - Negative Bedside Urine pH 6.0 Bedside Urine Protein - Negative Bedside Urine Urobilinogen - Negative Bedside Urine Nitrite - Negative Bedside Urine Leukocytes - Negative Esterase MDM Narrative Medical decision making narrative: [22] year old patient presents with lower pelvic cramping in Multiple etiologies for patient's symptoms considered including, but not limited to: [Miscarriage versus previa versus UTI versus other] Prior Charts reviewed in our EMR Primary Historian: patient Labs reviewed and interpreted by myself: No significant abnormalities requiring intervention Imaging reviewed: Single living intrauterine with symmetric and age-appropriate growth Patient with reassuring history and physical exam, multiple diagnoses considered as noted above, however no findings suggestive of the need for intervention, hospitalization or further workup are present at this time. Patient's questions have been answered to her apparent satisfaction Findings and discharge diagnosis discussed with patient/family followed by verbalization of understanding Return precautions discussed with patient/family whom verbalize understanding of diagnosis and plan Discharge Plan Departure Patient Disposition: Home Clinical Impression: Abdominal cramping complicating Instructions: Common Discomforts and Bodily Changes During Activity Restrictions/Additional Instructions: *You have been diagnosed with [cramping and . As we discussed your history and physical exam is reassuring as are the labs and ultrasound.] *What to do: *Please continue to take your regular medications as directed. [ ] New medication prescriptions sent to your pharmacy: [ ] [ ] New medication written as a paper prescription [ ] No new medications given *Please follow up with your primary care provider in 2-3 days, call for an appointment. Let them know you were seen in the Emergency Department and that we ask that you be seen in follow up. We will electronically transmit a record of today's note if your PCP is in our system *If you do not have a primary care provider please contact the [facility] Resource line at [phone]. They will ask some questions about your medical history and help get you set up with a doctor in the community. *Return to Emergency Department if you should have any new, worsening or concerning symptoms, such as [fever greater than 101 F, shaking chills, worsening pain, persistent vomiting or other bothersome symptoms] Prescriptions: No Action lamotrigine 25 mg tablet 50 mg PO DAILY 30 Days Qty: 30 1RF Rx Instructions: New Medication desog-e.estradiol/e.estradiol [Kathy (28)] 0.15-0.02 mgx21 /0.01 mg x 5 tablet 1 tab PO DAILY Qty: 84 4RF Rx Instructions: Take once daily. ondansetron 4 mg tablet,disintegrating 4 mg PO albuterol sulfate [Ventolin HFA] 90 MCG/PUFF HFA aerosol inhaler 0 puff INH Q4HP PRN (Reason: Bronchospasm) naproxen 500 mg tablet 500 mg PO BID PRN (Reason: pain) Qty: 10 0RF Referrals: Esme Park MD [Physician] - Broderick Pierre ARNP [Primary Care Provider] - Stand Alone Forms: Patient Portal/API
[2023-09-14 23:51] VITALS: BP 114/65; PULSE 100; RESP 16; TEMP 37.1; O2SAT 98; BMI 24.0
--- NOTE | 2023-09-15 | DI.US.S_ITS ---
PROCEDURE: US OB >= 14 WEEKS FETUS INDICATIONS: at 15 weeks, pelvic pain, less baby moving OUTSIDE/PRIOR DATING DATA: Last menstrual period (LMP): 05/28/23. LMP-based estimated date of delivery (DRU): 03/03/24. First dating scan (date and location): Not available. Estimated date of delivery (DRU) from first dating scan: Not applicable. The calculations are made using the clinical DRU of 03/03/24. TECHNIQUE: Real-time scanning was performed of the fetus, with image documentation and biometric measurements. Endovaginal scanning: Not performed COMPARISON: [facility], , US OB >= 14 WEEKS FETUS, 10/17/2019, 8:31. FINDINGS: General: A single living intrauterine gestation is present. Presentation: Transverse, head to maternal left. Placenta: Placental position is posterior , without previa. Amniotic fluid index: 8.7 cm, normal range is 5-24 cm. Single deepest vertical pocket is 2.4 cm. heart rate: 152 beats per minute. Maternal cervical canal: Closed and 3.6 cm long. Normal lower limit is 2.5 cm. biometrics: Biparietal diameter: 3.2 cm, 16 weeks 1 day Head circumference: 12.5 cm, 16 weeks 2 days Abdominal circumference: 10.2 cm, 16 weeks 1 day Femur length: 3.0 cm, 15 weeks 6 days Clinically estimated gestational age: 15 weeks 5 days Composite gestational age from present scan: 16 weeks 1 day Estimated weight and percentile: 143 g, 63rd percentile IMPRESSION: 1. Single living intrauterine with symmetric and age-appropriate growth. We strive to produce accurate, complete, and clear reports of imaging services. To assist us in improving patient care, this report was composed using standard report templates and voice recognition software. Therefore, it may contain abnormal punctuation, insertions and/or omissions. Occasional wrong-word or sound-alike substitutions may occur. Though we review the report and make efforts to correct it, we do recommend that the report be read carefully in proper context to recognize any text inaccuracies. Dictated by: Vernell Altman M.D. on 09/15/2023 at 2:22 Approved by: Vernell Altman M.D. on 09/15/2023 at 2:25
[2023-09-15 00:34] LABS: Add Manual Diff / Slide Review NO; Basophils Absolute Auto 0 /uL (0-100); Basophils Percent Auto 0.3 % (0-2); Eosinophils Absolute Auto 100 /uL (0-450); Hematocrit 34.5 % (36-46); Hemoglobin 11.8 g/dL (12.0-16.0); Lymphocytes Absolute Auto 2600 /uL (1100-4500); Lymphocytes Percent Auto 24.1 % (25-40); Mean Corpuscular HGB Conc 34.2 % (30-36); Mean Corpuscular Hemoglobin 29.5 PG (26-34); Mean Corpuscular Volume 86.4 fL (80-100); Monocytes Absolute Auto 900 /uL (0-900); Neutrophils Absolute Auto 7200 /uL (1500-7000); Neutrophils Percent Auto 66.6 % (50-75); Platelet Count 276 X10^3/uL (150-400); Red Cell Distribution Width 12.8 % (11.6-14.8); White Blood Cell Count 10.8 X10^3/uL (4.5-11.0)
[2023-09-15 00:44] LABS: Alanine Aminotransferase 11 IU/L (<35); Albumin 4.2 g/dL (3.5-5.0); Albumin Globulin Ratio 1.3 (1.0-2.8); Alkaline Phosphatase 37 U/L (38-126); Aspartate Aminotransferase 24 IU/L (14-36); BUN Creatinine Ratio 11.9 (6-22); Bilirubin Total 0.3 mg/dL (0.2-1.3); Blood Urea Nitrogen 5 mg/dL (7-17); Calcium 9.3 mg/dL (8.4-10.2); Carbon Dioxide 24 mmol/L (22-32); Chloride 100 mmol/L (98-107); Estimated Glomerular Filt Rate > 60 mL/min (>60); Globulin 3.2 g/dL (1.7-4.1); Glucose 89 mg/dL (70-100); HEMOLYSIS 34 (0-50); Potassium 3.8 mmol/L (3.4-5.1); Sodium 134 mmol/L (137-145); Total Protein 7.4 g/dL (6.3-8.2)
[2023-09-15 01:01] LABS: HCG Quantitative /Beta subunit 25753 mIU/mL
[2023-09-15 02:05] VITALS: PULSE 64; RESP 18; O2SAT 99
[2023-09-15 02:20] VITALS: PULSE 62; O2SAT 99
[2023-09-15 02:25] VITALS: PULSE 69; RESP 18; O2SAT 98
[2023-09-15 02:28] VITALS: PULSE 73; O2SAT 97
[2023-09-15 02:30] VITALS: PULSE 71; O2SAT 98
[2023-09-15 02:35] VITALS: BP 107/64; PULSE 80; RESP 16; TEMP 36.8; O2SAT 100
== END 2023-09-15 02:39 | disposition home or self-care (01) ==
PROVIDERS: Emergency Provider Emergency Medicine; Family Provider Registered Nurse Diabetes Educator; PCP Registered Nurse Diabetes Educator
DX: O26.891 Other specified pregnancy related conditions, first trimester (principal); R10.9 Unspecified abdominal pain; Z3A.13 13 weeks gestation of pregnancy
CPT/HCPCS: 76811; 80053; 81003; 84702; 85025; 99282; 99284

== ENCOUNTER → 2024-05-12 15:14 | Outpatient (CLI) | payer OTHER, MEDICAID, SELFPAY | PROVIDERS: Family Provider Registered Nurse Diabetes Educator; Visit Provider Obstetrics & Gynecology | DX: N89.8 Other specified noninflammatory disorders of vagina (principal) | CPT/HCPCS: 87480; 87510; 87660 ==

== ENCOUNTER → 2024-08-03 14:13 | Outpatient (CLI) | payer OTHER, MEDICAID, SELFPAY ==
[2024-08-03 15:27] LABS: Hemoglobin 12.8 g/dL (12.0-16.0); Mean Corpuscular HGB Conc 33.8 % (30-36); Mean Corpuscular Hemoglobin 29.9 PG (26-34); Mean Corpuscular Volume 88.5 fL (80-100); Platelet Count 288 X10^3/uL (150-400); Red Cell Distribution Width 12.2 % (11.6-14.8); White Blood Cell Count 5.8 X10^3/uL (4.5-11.0)
[2024-08-03 15:34] LABS: Hemoglobin A1C% w Est Avg Glu 5.1 % (4.0-6.0)
[2024-08-03 15:54] LABS: Erythrocyte Sedimentation Rate 6 MM/HR (0-20)
[2024-08-03 17:58] LABS: BUN Creatinine Ratio 14.5 (6-22); Blood Urea Nitrogen 8 mg/dL (7-17); C-Reactive Protein Quant < 0.5 mg/dL (<1.0); Calcium 9.3 mg/dL (8.4-10.2); Carbon Dioxide 26 mmol/L (22-32); Chloride 105 mmol/L (98-107); Estimated Glomerular Filt Rate > 60 mL/min (>60); Glucose 99 mg/dL (70-100); HEMOLYSIS < 15 (0-50); Potassium 3.6 mmol/L (3.4-5.1); Sodium 140 mmol/L (137-145)
[2024-08-03 18:49] LABS: Free T4, Direct Thyroxine 1.05 ng/dL (0.78-2.19)
== END ==
PROVIDERS: Family Provider Registered Nurse Diabetes Educator; PCP Nurse Practitioner Family; Referring Provider Nurse Practitioner Family; Visit Provider Nurse Practitioner Family
DX: R53.1 Weakness (principal); R63.4 Abnormal weight loss; G44.009 Cluster headache syndrome, unspecified, not intractable; Z86.39 Personal history of other endocrine, nutritional and metabolic disease
CPT/HCPCS: 36415; 80048; 83036; 84439; 84443; 85027; 85651; 86140

== ENCOUNTER → 2024-08-23 12:46 | Outpatient (CLI) | payer OTHER, MEDICAID, SELFPAY ==
--- NOTE | 2024-08-23 12:48 | DI.MRI.S_ITS ---
PROCEDURE: MR HEAD/BRAIN WO/W CON INDICATIONS: migraines with weakness TECHNIQUE: Noncontrast axial T1 spin echo, axial T2 fast spin echo, sagittal and axial FLAIR, coronal T2 fast spin echo, axial gradient echo, axial diffusion and ADC through the brain. After the administration of contrast, axial and coronal and sagittal 3D VIBE or T1 spin echo with fat saturation through the brain. COMPARISON: [facility], MR, MR HEAD/BRAIN WO/W CON, 06/15/2022, 9:43. FINDINGS: Image quality: Excellent. CSF Spaces: Basal cisterns are patent. No extra-axial fluid collections. Ventricles are normal in size and shape. Brain: No midline shift. No intracranial bleeds or masses. No abnormal intracranial enhancement. The brainstem appears normal. Diffusion-weighted images demonstrate no acute infarct. No chronic ischemic insults. Normal intravascular flow voids are present. Skull and face: Calvarial marrow is normal in signal. Orbits appear normal. Sinuses: Sinuses and mastoids appear clear. IMPRESSION: 1. No acute intracranial process. Dictated by: Gracie Charles M.D. on 08/23/2024 at 21:18 Approved by: Gracie Charles M.D. on 08/23/2024 at 21:19
== END ==
PROVIDERS: Family Provider Registered Nurse Diabetes Educator; PCP Nurse Practitioner Family; Referring Provider Nurse Practitioner Family; Visit Provider Nurse Practitioner Family
DX: G44.009 Cluster headache syndrome, unspecified, not intractable (principal); R53.1 Weakness
CPT/HCPCS: 70553; A9579

== ENCOUNTER → 2024-08-30 13:31 | Outpatient (CLI) | payer OTHER, MEDICAID, SELFPAY ==
[2024-08-30 14:42] LABS: HCG Quantitative /Beta subunit < 2.39 mIU/mL
[2024-08-30 15:02] LABS: Free T3, Triiodothyronine Free 3.45 pg/mL (2.77-5.27); Free T4, Direct Thyroxine 1.01 ng/dL (0.78-2.19)
[2024-08-30 15:15] LABS: Thyroid Stimulating Hormone 0.658 uIU/mL (0.47-4.68)
[2024-09-01 20:09] LABS: Thyroid Peroxidase Antibodies 17 IU/mL (0-34)
== END ==
PROVIDERS: Family Provider Registered Nurse Diabetes Educator; PCP Nurse Practitioner Family; Referring Provider Nurse Practitioner Family; Visit Provider Nurse Practitioner Family
DX: R63.4 Abnormal weight loss (principal); R79.89 Other specified abnormal findings of blood chemistry; N91.2 Amenorrhea, unspecified
CPT/HCPCS: 36415; 81025; 84439; 84443; 84481; 84702; 86376; 86800

== ENCOUNTER → 2025-03-13 12:14 | Outpatient (CLI) | payer OTHER, SELFPAY ==
[2025-03-13 14:23] LABS: HCG Quantitative /Beta subunit 198.05 mIU/mL
== END ==
PROVIDERS: Family Provider Registered Nurse Diabetes Educator; PCP Nurse Practitioner Family; Referring Provider Physician Assistant; Visit Provider Physician Assistant
DX: R11.0 Nausea (principal); N91.2 Amenorrhea, unspecified
CPT/HCPCS: 36415; 84702

== ENCOUNTER → 2025-04-20 12:58 | Outpatient (CLI) | payer OTHER, SELFPAY ==
[2025-04-20 13:28] LABS: Add Manual Diff / Slide Review NO; Basophils Absolute Auto 0 /uL (0-100); Basophils Percent Auto 0.4 % (0-2); Eosinophils Absolute Auto 100 /uL (0-450); Eosinophils Percent Auto 0.9 % (2-4); Hematocrit 37.9 % (36-46); Hemoglobin 13.1 g/dL (12.0-16.0); Lymphocytes Absolute Auto 1900 /uL (1100-4500); Lymphocytes Percent Auto 32.7 % (25-40); Mean Corpuscular HGB Conc 34.5 % (30-36); Mean Corpuscular Volume 86.9 fL (80-100); Monocytes Absolute Auto 500 /uL (0-900); Monocytes Percent Auto 8.5 % (3-14); Neutrophils Absolute Auto 3300 /uL (1500-7000); Neutrophils Percent Auto 57.5 % (50-75); Platelet Count 299 X10^3/uL (150-400); Red Blood Cell Count 4.36 X10^6/uL (4.0-5.2); Red Cell Distribution Width 12.6 % (11.6-14.8); White Blood Cell Count 5.7 X10^3/uL (4.5-11.0)
[2025-04-20 13:35] LABS: Appearance Urine UA CLEAR; Bilirubin Urine UA NEGATIVE (NEGATIVE); Color Urine UA YELLOW; Glucose Urine UA NEGATIVE (Negative); Ketones Urine UA NEGATIVE (NEGATIVE); Leukocyte Esterase Urine UA NEGATIVE (NEGATIVE); Nitrite Urine UA NEGATIVE (Negative); Occult Blood Urine UA NEGATIVE (Negative); Protein Urine UA TRACE (Negative); Specific Gravity Urine UA >=1.030 (1.000-1.035); Urobilinogen Urine UA 0.2 E.U./dL (0.2)
[2025-04-20 14:04] LABS: Natera Collection Specimen Collected
[2025-04-20 14:10] LABS: Alanine Aminotransferase 13 IU/L (<35); Aspartate Aminotransferase 19 IU/L (14-36); BUN Creatinine Ratio 10.6 (6-22); Blood Urea Nitrogen 5 mg/dL (7-17); Estimated Glomerular Filt Rate > 60 mL/min (>60); Uric Acid 3.1 mg/dL (2.5-6.2)
[2025-04-20 14:29] LABS: Bacteria Urine Occasional (0-1); Culture Indicated Urine Cult Not Indicated; RBC Urine 0-1/HPF (0-5/HPF); Squamous Epithelial Cell Urine None Seen (0-5/HPF); Urine Volume 10mL (spun); WBC Urine None Seen (0-5/HPF)
[2025-04-21 06:11] LABS: RPR Screen Non Reactive (Non Reactive)
[2025-04-21 09:36] LABS: Varicella IgG Antibody Reactive (Non Reactive)
[2025-04-21 16:11] LABS: Hepatitis B Surface Antigen NEGATIVE s/c (NEGATIVE); Rubella Antibody IgG 13.6 IU/mL (>15)
[2025-04-21 16:15] LABS: HIV 1 & 2 Ab/Ag 4th Gen Combo NEGATIVE (NEGATIVE); Hep C Virus Ab w/Reflex Quant NEGATIVE s/c (NEGATIVE)
== END ==
PROVIDERS: Family Provider Registered Nurse Diabetes Educator; PCP Nurse Practitioner Family; Referring Provider Family Medicine; Visit Provider Family Medicine
DX: O09.899 Supervision of other high risk pregnancies, unspecified trimester (principal)
CPT/HCPCS: 36415; 80055; 81003; 81015; 82565; 84450; 84460; 84520; 84550; 86787; 86803; 86850; 86900; 86901; 87086; 87389